=== PATIENT | female | born 1945 | race Caucasian/White ===

== ENCOUNTER 2021-07-14 05:05 | Emergency (ER) | payer MEDICARE, OTHER ==
[2021-07-14] MEDS ORDERED: SODIUM CHLORIDE 0.9% 1,000 ML IV STA (05:09)
[2021-07-14] MEDS ORDERED: HYDROmorphone 1 MG/ML 1 ML SYRINGE IVP STA (05:10)
[2021-07-14] MEDS ORDERED: LORazepam 2 MG/ML INJ IV STA (05:10)
--- NOTE | 2021-07-14 05:11 | ED ---
Fall HPI - General Stated Complaint: Fall Time Seen by Provider: 07/14/21 05:09 Source: EMS, RN notes reviewed, old records reviewed Mode of arrival: EMS Limitations: no limitations - History of Present Illness Initial Comments: This is a 76-year-old female to the emergency department today for status post fall. Patient was being transported transfer bed at [facility] facility was dropped on the ground. She has bruising of both legs pain of both hips inability to move both legs. MD Complaint: fall -: hour(s) Fall From: out of bed, from height (distance) When Fall Occurred: 1 hour [employer] Fall Witnessed: yes, by family Place Fall Occurred: home Prolonged Down Time?: no Symptoms Prior to Fall: none Location - Extremities: Left: Thigh, Right: Thigh Severity: moderate Severity scale (1-10): 4 Quality: sharp, aching Context: other (dropped) Associated Symptoms: denies - Related Data Allergies Allergy/AdvReac Type Severity Reaction Status Date / Time alfalfa Allergy Unknown Verified 07/14/21 06:14 duloxetine [From Cymbalta] Allergy Unknown Verified 07/14/21 06:14 peach Allergy Unknown Verified 07/14/21 06:14 Penicillins Allergy Unknown Verified 07/14/21 06:14 Review of Systems ROS Statement: Those systems with pertinent positive or pertinent negative responses have been documented in the HPI. ROS Other: All systems not noted in ROS Statement are negative. General Exam General appearance: alert, in no apparent distress, obese Head exam: Present: atraumatic, normocephalic, normal inspection Eye exam: Present: normal appearance, PERRL, EOMI. Absent: scleral icterus, conjunctival injection, periorbital swelling ENT exam: Present: normal exam, mucous membranes moist Neck exam: Present: normal inspection. Absent: tenderness, meningismus, lympha denopathy Respiratory exam: Present: normal lung sounds bilaterally. Absent: respiratory distress, wheezes, rales, rhonchi, stridor Cardiovascular Exam: Present: regular rate, normal rhythm, normal heart sounds. Absent: systolic murmur, diastolic murmur, rubs, gallop, clicks GI/Abdominal exam: Present: soft, normal bowel sounds. Absent: distended, tenderness, guarding, rebound, rigid Extremities exam: Present: normal inspection, full ROM, normal capillary refill. Absent: tenderness, pedal edema, joint swelling, calf tenderness Back exam: Present: normal inspection Neurological exam: Present: alert, oriented X3, CN II-XII intact Psychiatric exam: Present: normal affect, normal mood Skin exam: Present: warm, dry, intact, normal color. Absent: rash Course Vital Signs 07/14/21 07/14/21 07/14/21 05:10 06:10 07:22 Temperature 97.7 F Pulse Rate 95 120 H 111 H Respiratory 20 20 20 Rate Blood Pressure 117/88 115/89 113/89 O2 Sat by Pulse 92 L 94 L 95 Oximetry - Reevaluation(s) Reevaluation #1: 07/15/21 Medical record is reviewed Patient symptoms are improved here in the ER Patient informed results and findings, questions answered Patient is no acute distress Medical Decision Making - Medical Decision Making 76 female who is dropped her and transported extended care facility presents for evaluation. Patient has no significant new pain but imaging here is negative and patient can be discharged home - Lab Data Result diagrams: 07/14/21 05:39 07/14/21 05:39 Lab Results 07/14/21 07/14/21 07/14/21 Range/Units 05:39 05:39 05:39 WBC 8.6 (3.8-10.6) k/uL RBC 5.12 (3.80-5.40) m/uL Hgb 14.3 (11.4-16.0) gm/dL Hct 46.1 H (34.0-46.0) % MCV 90.2 D (80.0-100.0) fL MCH 28.0 (25.0-35.0) pg MCHC 31.0 (31.0-37.0) g/dL RDW 15.4 (11.5-15.5) % Plt Count 305 (150-450) k/uL MPV 6.8 Neutrophils % 81 % Lymphocytes % 12 % Monocytes % 4 % Eosinophils % 2 % Basophils % 0 % Neutrophils # 7.0 (1.3-7.7) k/uL Lymphocytes # 1.0 (1.0-4.8) k/uL Monocytes # 0.3 (0-1.0) k/uL Eosinophils # 0.2 (0-0.7) k/uL Basophils # 0.0 (0-0.2) k/uL Hypochromasia Marked PT 11.0 (9.0-12.0) sec INR 1.0 (<1.2) APTT 23.2 (22.0-30.0) sec Sodium 135 L (137-145) mmol/L Potassium 5.0 (3.5-5.1) mmol/L Chloride 97 L (98-107) mmol/L Carbon Dioxide 35 H (22-30) mmol/L Anion Gap 3 mmol/L BUN 17 (7-17) mg/dL Creatinine 0.35 L (0.52-1.04) mg/dL Est GFR (CKD-EPI)AfAm >90 (>60 ml/min/1.73 sqM) Est GFR (CKD-EPI)NonAf >90 (>60 ml/min/1.73 sqM) Glucose 119 H (74-99) mg/dL Calcium 8.6 (8.4-10.2) mg/dL Phosphorus 4.0 (2.5-4.5) mg/dL Magnesium 2.0 (1.6-2.3) mg/dL Total Bilirubin 0.4 (0.2-1.3) mg/dL AST 29 (14-36) U/L ALT 11 (4-34) U/L Alkaline Phosphatase 71 (38-126) U/L Creatine Kinase 34 (30-135) U/L Troponin I (0.000-0.034) ng/mL NT-Pro-B Natriuret Pep pg/mL Total Protein 6.5 (6.3-8.2) g/dL Albumin 3.1 L (3.5-5.0) g/dL 07/14/21 07/14/21 Range/Units 05:39 06:40 WBC (3.8-10.6) k/uL RBC (3.80-5.40) m/uL Hgb (11.4-16.0) gm/dL Hct (34.0-46.0) % MCV (80.0-100.0) fL MCH (25.0-35.0) pg MCHC (31.0-37.0) g/dL RDW (11.5-15.5) % Plt Count (150-450) k/uL MPV Neutrophils % % Lymphocytes % % Monocytes % % Eosinophils % % Basophils % % Neutrophils # (1.3-7.7) k/uL Lymphocytes # (1.0-4.8) k/uL Monocytes # (0-1.0) k/uL Eosinophils # (0-0.7) k/uL Basophils # (0-0.2) k/uL Hypochromasia PT (9.0-12.0) sec INR (<1.2) APTT (22.0-30.0) sec Sodium (137-145) mmol/L Potassium (3.5-5.1) mmol/L Chloride (98-107) mmol/L Carbon Dioxide (22-30) mmol/L Anion Gap mmol/L BUN (7-17) mg/dL Creatinine (0.52-1.04) mg/dL Est GFR (CKD-EPI)AfAm (>60 ml/min/1.73 sqM) Est GFR (CKD-EPI)NonAf (>60 ml/min/1.73 sqM) Glucose (74-99) mg/dL Calcium (8.4-10.2) mg/dL Phosphorus (2.5-4.5) mg/dL Magnesium (1.6-2.3) mg/dL Total Bilirubin (0.2-1.3) mg/dL AST (14-36) U/L ALT (4-34) U/L Alkaline Phosphatase (38-126) U/L Creatine Kinase (30-135) U/L Troponin I <0.012 (0.000-0.034) ng/mL NT-Pro-B Natriuret Pep 598 pg/mL Total Protein (6.3-8.2) g/dL Albumin (3.5-5.0) g/dL - EKG Data -: EKG Interpreted by Me (EKG shows sinus tachycardia PVCs rate of 126 WV 128 QRS 66 and QTC of 469) - Radiology Data Radiology results: report reviewed (Chest hip And pelvis x-ray is negative for traumatic injury), image reviewed Disposition Clinical Impression: Fall Disposition: HOME SELF-CARE Condition: Fair Instructions (If sedation given, give patient instructions): Fall Prevention for Older Adults (ED) Is patient prescribed a controlled substance at d/c from ED?: No Referrals: Benitez Garcia DO [Primary Care Provider] - 1-2 days
[2021-07-14 05:17] VITALS: RESP 20; TEMP 97.7
[2021-07-14 06:08] LABS: ALT 11 U/L (4-34); AST 29 U/L (14-36); African American GFR (CKD) >90 (>60 ml/min/1.73 sqM); Albumin 3.1 g/dL (3.5-5.0); Alkaline Phosphatase 71 U/L (38-126); Anion Gap 3 mmol/L; Blood Urea Nitrogen 17 mg/dL (7-17); Calcium 8.6 mg/dL (8.4-10.2); Carbon Dioxide 35 mmol/L (22-30); Chloride 97 mmol/L (98-107); Creatine Kinase 34 U/L (30-135); Glucose 119 mg/dL (74-99); Non-African American GFR(CKD) >90 (>60 ml/min/1.73 sqM); Sodium 135 mmol/L (137-145); Total Bilirubin 0.4 mg/dL (0.2-1.3); Total Protein 6.5 g/dL (6.3-8.2)
--- NOTE | 2021-07-14 06:10 | XR ---
EXAMINATION TYPE: XR chest 1V DATE OF EXAM: 07/14/2021 COMPARISON: NONE HISTORY: Fall. Pain. TECHNIQUE: Single view FINDINGS: There is no heart failure nor confluent pneumonic infiltrate. Costophrenic angles are clear . Bony thorax is intact. Heart is probably enlarged. IMPRESSION: No active cardiopulmonary disease.
--- NOTE | 2021-07-14 06:12 | XR ---
EXAMINATION TYPE: XR Hip Bilateral and AP pelvis DATE OF EXAM: 07/14/2021 COMPARISON: NONE HISTORY: Fall. Pain. TECHNIQUE: 6 views FINDINGS: Pelvic ring is intact. Proximal femurs are intact. I see no evidence of a hip fracture. Sac roiliac joints are intact. There is mild hip joint space narrowing. Exam limited by patient's size. IMPRESSION: There are some osteoarthritic change in the right hip more than the left. No fracture see n.
[2021-07-14 06:15] LABS: Basophils % (A) 0 %; Eosinophils # (A) 0.2 k/uL (0-0.7); Eosinophils % (A) 2 %; HCT 46.1 % (34.0-46.0); HGB 14.3 gm/dL (11.4-16.0); Hypochromasia Marked; Lymphocytes % (A) 12 %; Mean Platelet Volume 6.8; Monocytes # (A) 0.3 k/uL (0-1.0); Monocytes % (A) 4 %; Neutrophils % (A) 81 %; Platelet Count 305 k/uL (150-450); RBC 5.12 m/uL (3.80-5.40); RDW 15.4 % (11.5-15.5); WBC 8.6 k/uL (3.8-10.6)
[2021-07-14 06:21] LABS: MCV 90.2 fL (80.0-100.0)
[2021-07-14 06:29] LABS: Partial Thromboplastin Time 23.2 sec (22.0-30.0)
[2021-07-14] MEDS ORDERED: ALPRAZolam 0.25 MG TAB PO STA (07:02)
[2021-07-14 07:24] VITALS: BP 113/89; PULSE 111
== END 2021-07-14 08:30 | disposition home or self-care (01) ==
LOC: EC 05:05
DX: M79.652 Pain in left thigh (principal); M79.651 Pain in right thigh; E66.9 Obesity, unspecified; Z88.0 Allergy status to penicillin; Z88.8 Allergy status to other drugs, medicaments and biological substances; Z68.44 Body mass index [BMI] 60.0-69.9, adult; W06.XXXA Fall from bed, initial encounter
CPT/HCPCS: 71045; 73521; 80053; 82550; 83735; 83880; 84100; 84484; 85025; 85610; 85730; 93005; 96360; 96361; 99284

== ENCOUNTER → 2022-11-07 | Outpatient (CLI) | payer OTHER ==
[2022-11-07 15:28] LABS: African American GFR (CKD) >90 (>60 ml/min/1.73 sqM); Blood Urea Nitrogen 29 mg/dL (7-17); Non-African American GFR(CKD) >90 (>60 ml/min/1.73 sqM)
--- NOTE | 2022-11-07 22:13 | CT ---
EXAMINATION TYPE: CT abdomen pelvis w con CT DLP: 3033.6 mGycm, Automated exposure control for dose reduction was used. DATE OF EXAM: 11/07/2022 5:33 PM COMPARISON: None CLINICAL INDICATION:Female, 77 years old with history of R19.00 INTRA-ABD AND PELVIC SWELLING, MASS A ND LUM; Intra-abdominal swelling/mass TECHNIQUE: Axial CT of the abdomen and pelvis. Sagittal and coronal reformats were created on a [employer] workstation. Contrast used:100cc mL of Isovue 300 with IV Contrast, Oral contrast used: with Oral Contrast FINDINGS: Exam limited by photon starvation from patient's body habitus. LOWER CHEST: Heart is enlarged for size. Pelvic shunt measures up to 4.1 cm. Scattered groundglass op acities are seen throughout the lungs. ABDOMEN LIVER: Diffusely hypoattenuating parenchyma. GALLBLADDER AND BILE DUCTS: Unremarkable. PANCREAS: Unremarkable. SPLEEN: Unremarkable. ADRENAL GLANDS: Unremarkable. KIDNEYS AND URETERS: No evidence of hydronephrosis or renal calculus. The ureters are unremarkable. PELVIS BLADDER: Unremarkable REPRODUCTIVE: Unremarkable. ABDOMEN & PELVIS STOMACH AND BOWEL: No evidence of bowel obstruction. There is a moderate hiatal hernia. PERITONEUM: No evidence of pneumoperitoneum or free fluid. VASCULATURE: No evidence of aortic aneurysm. MUSCULOSKELETAL: No acute osseous abnormalities LYMPH NODES: No gross evidence for lymphadenopathy. SOFT TISSUE/ABDOMINAL WALL: Unremarkable IMPRESSION: 1. Limited exam without evidence for mass or lump. 2. Moderate hiatal hernia. 3. Cardiomegaly with suggestion of pulmonary vascular congestion.
== END | disposition home or self-care (01) ==
LOC: RADCTMAIN 14:12
PROVIDERS: ATTEND Family Medicine
DX: K44.9 Diaphragmatic hernia without obstruction or gangrene (principal); I51.7 Cardiomegaly; R19.09 Other intra-abdominal and pelvic swelling, mass and lump
CPT/HCPCS: 82565; 84520; 74177; 36415; Q9967 ×2

== ENCOUNTER 2023-01-24 10:06 | Inpatient (IN) | payer MEDICARE, OTHER ==
[2023-01-24] MEDS ORDERED: IPRATROPIUM-ALBUTEROL 3 ML NEB INHALATION STA (10:11)
--- NOTE | 2023-01-24 10:17 | ED ---
General Adult HPI - General Stated complaint: MAXIMINO Time Seen by Provider: 01/24/23 10:06 Source: patient, RN notes reviewed, old records reviewed - History of Present Illness Initial comments: This is a 77-year-old female who comes from [facility] for difficulty breathing. According to EMS everybody on that unit and having an upper respiratory issue at this time. Patient has been having difficulty with last ate yesterday she was started on antibiotic and steroid. Patient got worse and they brought her in the ambulance. Patient was oxygenating initially in the 80s and he was she was given a treatment on some oxygen and she was then oxygenating in the mid 90s. Patient denies any pain patient denies chest pain. Patient denies any headache patient denies lightheadedness or dizziness. Patient denies any palpitations per patient denies abdominal pain patient vomiting. Patient has a history of congestive heart failure and hypoventilation secondary to morbid obesity. Patient denies any recent fevers or chills and there is been no report of any significant coughing - Related Data Home Medications Medication Instructions Recorded Confirmed ALPRAZolam [Xanax] 0.25 mg PO DAILY PRN 01/24/23 01/24/23 ALPRAZolam [Xanax] 0.25 mg PO HS@209901/24/23 01/24/23 Acetaminophen [Acetaminophen 8 hr] 650 mg PO Q4H PRN 01/24/23 01/24/23 Albuterol Nebulized [Ventolin 2.5 mg INHALATION RT-Q4H PRN 01/24/23 01/24/23 Nebulized] Albuterol Nebulized [Ventolin 2.5 mg INHALATION RT-QID 01/24/23 01/24/23 Nebulized] Apixaban [Eliquis] 5 mg PO BID@0800,1700 01/24/23 01/24/23 Azithromycin [Zithromax] 500 mg PO DAILY 01/24/23 01/24/23 Benzonatate [Tessalon Perle] 200 mg PO TID@0800,1200,1700 01/24/23 01/24/23 Cholecalciferol [Vitamin D3 (25 100 mcg PO DAILY@1700 01/24/23 01/24/23 Mcg = 1000 Iu)] Docusate [Colace] 100 mg PO BID@0800,2100 01/24/23 01/24/23 Fluticasone Nasal Bowie [Flonase 1 spray EA NOSTRIL DAILY 01/24/23 01/24/23 Nasal Bowie] Furosemide [Lasix] 40 mg PO DAILY@0800 01/24/23 01/24/23 L.acidoph,Paracasei, B.lactis 1 cap PO DAILY@0800 01/24/23 01/24/23 [Probiotic] Magnesium Hydroxide [Milk of 7,200 mg PO DAILY PRN 01/24/23 01/24/23 Magnesia Concentrate] Multivitamins, Thera [Multivitamin 1 tab PO DAILY@1700 01/24/23 01/24/23 (formulary)] Na Phos,M-B/Na Phos,Di-Ba [Fleet 133 ml RECTAL DAILY PRN 01/24/23 01/24/23 Adult] Potassium Chloride ER [K-Dur 10] 10 meq PO BID@0800,1700 01/24/23 01/24/23 Sodium Chloride [Saline Mist] 1 spray EA NOSTRIL BID PRN 01/24/23 01/24/23 Spironolactone [Aldactone] 25 mg PO BID@0800,1700 01/24/23 01/24/23 bisacodyL [Dulcolax] 10 mg RECTAL DAILY PRN 01/24/23 01/24/23 dilTIAZem HCL 30 mg PO TID@0800,1400,2200 01/24/23 01/24/23 methylPREDNISolone [Medrol Dose See Taper PO DIRECTED 01/24/23 01/24/23 Pack] polyethylene glycoL 3350 [Miralax] 17 gm PO DAILY@0800 01/24/23 01/24/23 traMADol HCl [Ultram] 50 mg PO HS PRN 01/24/23 01/24/23 Allergies Allergy/AdvReac Type Severity Reaction Status Date / Time alfalfa Allergy Unknown Verified 07/14/21 06:14 duloxetine [From Cymbalta] Allergy Unknown Verified 07/14/21 06:14 peach Allergy Unknown Verified 07/14/21 06:14 Penicillins Allergy Unknown Verified 07/14/21 06:14 Review of Systems ROS Statement: Those systems with pertinent positive or pertinent negative responses have been documented in the HPI. ROS Other: All systems not noted in ROS Statement are negative. Past Medical History Past Medical History: Atrial Fibrillation, Asthma, Heart Failure, Hypertension, Osteoarthritis (OA), Sleep Apnea/CPAP/BIPAP, Vascular Disorder History of Any Multi-Drug Resistant Organisms: None Reported Past Surgical History: No Surgical Hx Reported Smoking Status: Never smoker Past Alcohol Use History: None Reported Past Drug Use History: None Reported General Exam - General Exam Comments Initial Comments: GENERAL: Patient is well-developed and well-nourished. Patient is nontoxic and well- hydrated and is in mild distress. ENT: Neck is soft and supple. No significant lymphadenopathy is noted. Oropharynx is clear. Moist mucous membranes. Neck has full range of motion without eliciting any pain. EYES: The sclera were anicteric and conjunctiva were pink and moist. Extraocular movements were intact and pupils were equal round and reactive to light. Eyelids were unremarkable. PULMONARY: Diminished breath sounds. CARDIOVASCULAR: Patient is tachycardic at 115 beats a minute ABDOMEN: Soft and nontender with normal bowel sounds. SKIN: Skin is clear with no lesions or rashes and otherwise unremarkable. NEUROLOGIC: Patient is alert and oriented x3. Cranial nerves II through XII are grossly intact. Motor and sensory are also intact. Normal speech, volume and content. Symmetrical smile. MUSCULOSKELETAL: Normal extremities with adequate strength and full range of motion. No lower extremity swelling or edema. No calf tenderness. LYMPHATICS: No significant lymphadenopathy is noted PSYCHIATRIC: Normal psychiatric evaluation. Course Vital Signs 01/24/23 01/24/23 01/24/23 10:07 10:14 10:23 Temperature 98.2 F Pulse Rate 136 H 120 H 128 H Respiratory 18 Rate Blood Pressure 118/98 O2 Sat by Pulse 92 L Oximetry Fraction of Inspired Oxygen (FIO2) 01/24/23 01/24/23 01/24/23 11:00 11:15 11:56 Temperature Pulse Rate 174 H 142 H Respiratory 33 H 30 H Rate Blood Pressure 122/75 113/58 O2 Sat by Pulse 94 L 94 L Oximetry Fraction of 80 Inspired Oxygen (FIO2) 01/24/23 01/24/23 01/24/23 12:10 12:15 12:30 Temperature Pulse Rate 134 H 134 H Respiratory 18 Rate Blood Pressure 83/57 96/62 O2 Sat by Pulse 95 96 Oximetry Fraction of 80 Inspired Oxygen (FIO2) 01/24/23 01/24/23 01/24/23 12:40 12:48 12:50 Temperature Pulse Rate 146 H 154 H Respiratory 36 H 20 Rate Blood Pressure 92/29 88/58 O2 Sat by Pulse 93 L 97 Oximetry Fraction of 80 Inspired Oxygen (FIO2) 01/24/23 01/24/23 13:00 13:10 Temperature Pulse Rate 161 H 152 H Respiratory 20 22 Rate Blood Pressure 63/38 112/78 O2 Sat by Pulse 93 L 96 Oximetry Fraction of Inspired Oxygen (FIO2) Procedures - Intubation Sedative: Versed Paralytic: Succinylcholine Laryngoscope: Toribio Size: 4 ET Tube Size: 7.5 ET Tube Uncuffed: No Tube Secured Location: teeth Tube Placement Confirmation: visualized tube passing through cords, equal breath sounds bilaterally, no breath sounds over epigastrium, confirmation by capnometry Patient Tolerated Procedure: well Intubation Complications: none Medical Decision Making - Medical Decision Making EKG was interpreted by myself shows fibrillation with rapid ventricular response at 127 bpm QRS is 91 QT interval 352 QTC is 380. EKG shows no ST segment elevation. Was pt. sent in by a medical professional or institution (Dr. PA, TOBACCO CURER, urgent care, hospital, or residential...) When possible be specific @ -Patient was sent in from the residential Did you speak to anyone other than the patient for history (EMS, parent, family, police, friend...)? What history was obtained from this source @ -EMS gave us most of the history because the patient was so short of breath she was unable Did you review nursing and triage notes (agree or disagree)? Why? @ -I reviewed and agree with nursing and triage notes Were old charts reviewed (outside hosp., previous admission, EMS record, old EKG, old radiological studies, urgent care reports/EKG's, residential records)? Report findings @ -To review prior lab work as well as prior radiological studies Differential Diagnosis (chest pain, altered mental status, abdominal pain women, abdominal pain men, vaginal bleeding, weakness, fever, dyspnea, syncope, headache, dizziness, GI bleed, back pain, seizure, CVA, palpatations, mental health, musculoskeletal)? @ -Differential Dyspnea: Coronary syndrome, arrhythmia, tamponade, asthma, COPD, pulmonary embolism, pneumonia, pneumothorax, pulmonary effusion, anaphylaxis, diabetic ketoacidosis, flailed chest, pulmonary contusion, diaphragmatic rupture, anemia, neuromuscular, this is not meant to be an all-inclusive list. EKG interpreted by me (3pts min.). @ -As above X-rays interpreted by me (1pt min.). @ -Chest x-ray was interpreted by myself as no acute abnormality. Chest x-ray after intubation was interpreted by myself that shows the ET tube down to close to the tenzin. CT interpreted by me (1pt min.). @ -None done U/S interpreted by me (1pt. min.). @ -None done What testing was considered but not performed or refused? (CT, X-rays, U/S, labs)? Why? @ -CT was considered but the patient was stable at this time so the patient was going to the ICU first. What meds were considered but not given or refused? Why? @ -None Did you discuss the management of the patient with other professionals (pro fessionals i.e. , PA, TOBACCO CURER, lab, RT, psych nurse, oncology social worker, oracle distribution consultant, teacher, sba business development officer, high risk case manager)? Give summary @ -I spoke with Dr. Marquez he was in agreement with treatment at this time and he will see the patient in ICU. I spoke with Dr. Mata he was in agreement with admitting the patient admitted the patient Was smoking cessation discussed for >3mins.? @ -No Was critical care preformed (if so, how long)? @ -35 minutes Were there social determinants of health that impacted care today? How? (Homelessness, low income, unemployed, alcoholism, drug addiction, tra nsportation, low edu. Level, literacy, decrease access to med. care, long-term, rehab)? @ -No Was there de-escalation of care discussed even if they declined (Discuss DNR or withdrawal of care, Hospice)? DNR status @ -No What co-morbidities impacted this encounter? (DM, HTN, Smoking, COPD, CAD, Cancer, CVA, ARF, Chemo, Hep., AIDS, mental health diagnosis, sleep apnea, morbid obesity)? @ -None Was patient admitted / discharged? Hospital course, mention meds given and route, prescriptions, significant lab abnormalities, going to OR and other pertinent info. @ -Patient was initially seen and she became more more obtunded and it was difficult to use BiPAP at this point patient's pCO2 was greater than 120 at this time so I intubated the patient. Patient was then given a liter fluid pressure was somewhat tender. Patient was initially started on Cardizem but because of low blood pressure that was stopped. Patient was started on propofol for some sedation so we get better ventilation. I spoke with Dr. Marquez and Dr. Mata and knocked with both accepted the patient Undiagnosed new problem with uncertain prognosis? @ -No Drug Therapy requiring intensive monitoring for toxicity (Heparin, Nitro, Insuli n, Cardizem)? @ -Propofol Were any procedures done? @ -No Diagnosis/symptom? @ -Respiratory failure Acute, or Chronic, or Acute on Chronic? @ -Acute Uncomplicated (without systemic symptoms) or Complicated (systemic symptoms)? @ -Complicated Side effects of treatment? @ -No Exacerbation, Progression, or Severe Exacerbation? @ -No Poses a threat to life or bodily function? How? (Chest pain, [place], CO, pneumonia, PE, COPD, DKA, ARF, appy, cholecystitis, CVA, Diverticulitis, Homicidal, Suicidal, threat to staff... and all critical care pts) @ -Yes this could lead to hypoxia and end organ dysfunction Diagnosis/symptom? @ -Hypercapnia Acute, or Chronic, or Acute on Chronic? @ -Acute Uncomplicated (without systemic symptoms) or Complicated (systemic symptoms)? @ -Complicated Side effects of treatment? @ -none Exacerbation, Progression, or Severe Exacerbation] @ -no Poses a threat to life or bodily function? @ -Yes this can lead to continue acidosis and lead to dysfunction of organs systems Diagnosis/symptom? @ -A. fib with rapid ventricular response Acute, or Chronic, or Acute on Chronic? @ -Acute on chronic Uncomplicated (without systemic symptoms) or Complicated (systemic symptoms)? @ -Complicated Side effects of treatment? @ -none Exacerbation, Progression, or Severe Exacerbation] @ -no Poses a threat to life or bodily function? @ -no Diagnosis/symptom? @ -Hyperkalemia Acute, or Chronic, or Acute on Chronic? @ -Acute Uncomplicated (without systemic symptoms) or Complicated (systemic symptoms)? @ -Complicated Side effects of treatment? @ -none Exacerbation, Progression, or Severe Exacerbation] @ -no Poses a threat to life or bodily function? @ -Yes this could lead to cardiac arrhythmias - Lab Data Result diagrams: 01/24/23 10:19 01/24/23 10:19 Lab Results 01/24/23 01/24/23 01/24/23 Range/Units 10:19 10:19 10:19 WBC 6.9 (3.8-10.6) k/uL RBC 5.91 H (3.80-5.40) m/uL Hgb 17.5 H (11.4-16.0) gm/dL Hct 54.2 H (34.0-46.0) % MCV 91.7 (80.0-100.0) fL MCH 29.7 (25.0-35.0) pg MCHC 32.3 (31.0-37.0) g/dL RDW 16.2 H (11.5-15.5) % Plt Count 203 (150-450) k/uL MPV 7.5 Neutrophils % 86 % Lymphocytes % 5 % Monocytes % 7 % Eosinophils % 0 % Basophils % 0 % Neutrophils # 6.0 (1.3-7.7) k/uL Lymphocytes # 0.3 L (1.0-4.8) k/uL Monocytes # 0.5 (0-1.0) k/uL Eosinophils # 0.0 (0-0.7) k/uL Basophils # 0.0 (0-0.2) k/uL Anisocytosis Slight PT 13.0 H (9.0-12.0) sec INR 1.3 H (<1.2) APTT 32.7 H (22.0-30.0) sec Sample Site ABG pH (7.35-7.45) ABG pCO2 (35-45) mmHg ABG pO2 (83-108) mmHg ABG O2 Saturation (94-97) % Luca Test FiO2 % Sodium 130 L (137-145) mmol/L Potassium 6.0 H (3.5-5.1) mmol/L Chloride 87 L (98-107) mmol/L Carbon Dioxide 38 H (22-30) mmol/L Anion Gap 5 mmol/L BUN 35 H (7-17) mg/dL Creatinine 0.51 L (0.52-1.04) mg/dL Est GFR (CKD-EPI)AfAm >90 (>60 ml/min/1.73 sqM) Est GFR (CKD-EPI)NonAf >90 (>60 ml/min/1.73 sqM) Glucose 125 H (74-99) mg/dL Plasma Lactic Acid Dev (0.7-2.0) mmol/L Calcium 8.9 (8.4-10.2) mg/dL Magnesium 1.9 (1.6-2.3) mg/dL Total Bilirubin 0.8 (0.2-1.3) mg/dL AST 36 (14-36) U/L ALT 27 (4-34) U/L Alkaline Phosphatase 95 (38-126) U/L Troponin I (0.000-0.034) ng/mL NT-Pro-B Natriuret Pep pg/mL Total Protein 7.3 (6.3-8.2) g/dL Albumin 3.7 (3.5-5.0) g/dL Influenza Type A (PCR) (Not Detectd) Influenza Type B (PCR) (Not Detectd) RSV (PCR) (Not Detectd) SARS-CoV-2 (PCR) (Not Detectd) 01/24/23 01/24/23 01/24/23 Range/Units 10:19 10:19 10:19 WBC (3.8-10.6) k/uL RBC (3.80-5.40) m/uL Hgb (11.4-16.0) gm/dL Hct (34.0-46.0) % MCV (80.0-100.0) fL MCH (25.0-35.0) pg MCHC (31.0-37.0) g/dL RDW (11.5-15.5) % Plt Count (150-450) k/uL MPV Neutrophils % % Lymphocytes % % Monocytes % % Eosinophils % % Basophils % % Neutrophils # (1.3-7.7) k/uL Lymphocytes # (1.0-4.8) k/uL Monocytes # (0-1.0) k/uL Eosinophils # (0-0.7) k/uL Basophils # (0-0.2) k/uL Anisocytosis PT (9.0-12.0) sec INR (<1.2) APTT (22.0-30.0) sec Sample Site ABG pH (7.35-7.45) ABG pCO2 (35-45) mmHg ABG pO2 (83-108) mmHg ABG O2 Saturation (94-97) % Luca Test FiO2 % Sodium (137-145) mmol/L Potassium (3.5-5.1) mmol/L Chloride (98-107) mmol/L Carbon Dioxide (22-30) mmol/L Anion Gap mmol/L BUN (7-17) mg/dL Creatinine (0.52-1.04) mg/dL Est GFR (CKD-EPI)AfAm (>60 ml/min/1.73 sqM) Est GFR (CKD-EPI)NonAf (>60 ml/min/1.73 sqM) Glucose (74-99) mg/dL Plasma Lactic Acid Dev 1.3 (0.7-2.0) mmol/L Calcium (8.4-10.2) mg/dL Magnesium (1.6-2.3) mg/dL Total Bilirubin (0.2-1.3) mg/dL AST (14-36) U/L ALT (4-34) U/L Alkaline Phosphatase (38-126) U/L Troponin I 0.048 H* (0.000-0.034) ng/mL NT-Pro-B Natriuret Pep 3320 pg/mL Total Protein (6.3-8.2) g/dL Albumin (3.5-5.0) g/dL Influenza Type A (PCR) (Not Detectd) Influenza Type B (PCR) (Not Detectd) RSV (PCR) (Not Detectd) SARS-CoV-2 (PCR) (Not Detectd) 01/24/23 01/24/23 Range/Units 10:19 11:35 WBC (3.8-10.6) k/uL RBC (3.80-5.40) m/uL Hgb (11.4-16.0) gm/dL Hct (34.0-46.0) % MCV (80.0-100.0) fL MCH (25.0-35.0) pg MCHC (31.0-37.0) g/dL RDW (11.5-15.5) % Plt Count (150-450) k/uL MPV Neutrophils % % Lymphocytes % % Monocytes % % Eosinophils % % Basophils % % Neutrophils # (1.3-7.7) k/uL Lymphocytes # (1.0-4.8) k/uL Monocytes # (0-1.0) k/uL Eosinophils # (0-0.7) k/uL Basophils # (0-0.2) k/uL Anisocytosis PT (9.0-12.0) sec INR (<1.2) APTT (22.0-30.0) sec Sample Site rrad ABG pH 7.06 L* (7.35-7.45) ABG pCO2 >120 H* (35-45) mmHg ABG pO2 172 H (83-108) mmHg ABG O2 Saturation 98.6 H (94-97) % Luca Test Yes FiO2 100 % Sodium (137-145) mmol/L Potassium (3.5-5.1) mmol/L Chloride (98-107) mmol/L Carbon Dioxide (22-30) mmol/L Anion Gap mmol/L BUN (7-17) mg/dL Creatinine (0.52-1.04) mg/dL Est GFR (CKD-EPI)AfAm (>60 ml/min/1.73 sqM) Est GFR (CKD-EPI)NonAf (>60 ml/min/1.73 sqM) Glucose (74-99) mg/dL Plasma Lactic Acid Dev (0.7-2.0) mmol/L Calcium (8.4-10.2) mg/dL Magnesium (1.6-2.3) mg/dL Total Bilirubin (0.2-1.3) mg/dL AST (14-36) U/L ALT (4-34) U/L Alkaline Phosphatase (38-126) U/L Troponin I (0.000-0.034) ng/mL NT-Pro-B Natriuret Pep pg/mL Total Protein (6.3-8.2) g/dL Albumin (3.5-5.0) g/dL Influenza Type A (PCR) Not Detected (Not Detectd) Influenza Type B (PCR) Not Detected (Not Detectd) RSV (PCR) Not Detected (Not Detectd) SARS-CoV-2 (PCR) Not Detected (Not Detectd) Critical Care Time Critical Care Time: Yes Total Critical Care Time: 35 Disposition Clinical Impression: Hypercarbia, Respiratory failure, Hyperkalemia, Atrial fibrillation with rapid ventricular response, Hyponatremia Disposition: ADMITTED IP TO THIS HOSP Referrals: Benitez Garcia DO [Primary Care Provider] - 1-2 days Time of Disposition: 13:31
[2023-01-24] MEDS ORDERED: DILTIAZEM DRIP BOLUS FROM BAG 1 MG SOLN IV ONE ×2 (10:41→17:03)
[2023-01-24 10:57] LABS: Anisocytosis Slight; Basophils % (A) 0 %; Eosinophils % (A) 0 %; HCT 54.2 % (34.0-46.0); HGB 17.5 gm/dL (11.4-16.0); Lymphocytes # (A) 0.3 k/uL (1.0-4.8); Lymphocytes % (A) 5 %; MCH 29.7 pg (25.0-35.0); MCHC 32.3 g/dL (31.0-37.0); MCV 91.7 fL (80.0-100.0); Mean Platelet Volume 7.5; Monocytes # (A) 0.5 k/uL (0-1.0); Monocytes % (A) 7 %; Neutrophils % (A) 86 %; Platelet Count 203 k/uL (150-450); RBC 5.91 m/uL (3.80-5.40); RDW 16.2 % (11.5-15.5); WBC 6.9 k/uL (3.8-10.6)
[2023-01-24] MEDS: CEFEPIME 2 GM in SODIUM CHLORIDE 0.9% 100 ML IVPB SCH (11:00)
--- NOTE | 2023-01-24 11:01 | XR ---
EXAMINATION TYPE: XR chest 2V DATE OF EXAM: 01/24/2023 COMPARISON: 07/14/2021 HISTORY: 77-year-old female shortness of breath, difficulty breathing TECHNIQUE: AP and lateral views FINDINGS: Heart mild to moderately enlarged. Large appearance to the central main pulmonary arteries. Interstit ial prominence. No rosa consolidation or pleural effusion. IMPRESSION: Cardiomegaly and pulmonary arterial hypertension. Correlate to exclude mild pulmonary vascular conges tion.
[2023-01-24] MEDS: DILTIAZEM 125 MG in SODIUM CHLORIDE 0.9% 100 ML IV SCH ×2 (11:09→18:59)
[2023-01-24 11:12] LABS: ALT 27 U/L (4-34); AST 36 U/L (14-36); African American GFR (CKD) >90 (>60 ml/min/1.73 sqM); Albumin 3.7 g/dL (3.5-5.0); Alkaline Phosphatase 95 U/L (38-126); Anion Gap 5 mmol/L; Blood Urea Nitrogen 35 mg/dL (7-17); Calcium 8.9 mg/dL (8.4-10.2); Carbon Dioxide 38 mmol/L (22-30); Chloride 87 mmol/L (98-107); Glucose 125 mg/dL (74-99); Magnesium 1.9 mg/dL (1.6-2.3); Non-African American GFR(CKD) >90 (>60 ml/min/1.73 sqM); Sodium 130 mmol/L (137-145); Total Bilirubin 0.8 mg/dL (0.2-1.3); Total Protein 7.3 g/dL (6.3-8.2)
[2023-01-24 11:23] LABS: INR 1.3 (<1.2); Partial Thromboplastin Time 32.7 sec (22.0-30.0)
[2023-01-24] MEDS ORDERED: FUROSEMIDE 10 MG/ML 4 ML VIAL IV STA ×2 (11:39→15:57)
[2023-01-24] MEDS ORDERED: CALCIUM CHLORIDE 100 MG/ML 10 ML SYRINGE IVP STA (11:41)
[2023-01-24] MEDS ORDERED: INSULIN REGULAR 100 UNIT/ML VIAL (IV) IV ONE (11:41)
[2023-01-24] MEDS ORDERED: SODIUM BICARB 8.4% 50 ML SYR (1 MEQ/ML) IV STA (11:41)
[2023-01-24] MEDS ORDERED: DEXTROSE 50% SYRINGE 50 ML IVP STA (11:41)
[2023-01-24 11:42] LABS: ABG Oxygen Saturation 98.6 % (94-97); ABG PO2 172 mmHg (83-108); Allen Test Performed? Yes
[2023-01-24] MEDS ORDERED: SUCCINYLCHOLINE CHLORIDE 200 MG/10 ML VIAL IV STA (11:48)
[2023-01-24] MEDS ORDERED: MIDAZOLAM 1 MG/ML 5 ML VIAL IV STA (11:50)
[2023-01-24 12:12] LABS: ABG PCO2 >120 mmHg (35-45); ABG PH 7.06 (7.35-7.45)
--- NOTE | 2023-01-24 12:15 | XR ---
EXAMINATION TYPE: XR chest 1V portable DATE OF EXAM: 01/24/2023 Comparison: Earlier today Clinical History: 77-year-old female Short of breath Findings: ET tube tip 2.1 cm from the tenzin. Consider pulling back 1.5 cm across. Measure. Heart remains moderately enlarged. Again, suspected underlying pulmonary hypertension. Interstitial p rominence is unchanged. No consolidation or pleural effusion. Impression: 1. ET tube tip 2.1 cm from the tenzin. Consider pulling back 1.5 cm as a precautionary measure. 2. Ongoing moderate cardiomegaly and suspected pulmonary arterial hypertension.
[2023-01-24] MEDS ORDERED: SODIUM CHLORIDE 0.9% 1,000 ML IV ONE ×3 (12:27→22:38)
[2023-01-24] MEDS ORDERED: DILTIAZEM 5 MG/ML 5 ML VIAL IVP STA ×2 (12:30→16:30)
[2023-01-24 13:29] LABS: ABG Base Excess 2.9 mmol/L; ABG HCO3 31 mmol/L (21-25); ABG Oxygen Saturation 99.6 % (94-97); ABG PO2 170 mmHg (83-108); ABG TCO2 33 mmol/L (19-24); Allen Test Performed? Yes
[2023-01-24 13:31] LABS: ABG PCO2 80 mmHg (35-45)
[2023-01-24] MEDS ORDERED: NALOXONE 0.4 MG/ML 1 ML VIAL IV PRN (13:39)
--- NOTE | 2023-01-24 14:08 | P.CNPUL ---
History of Present Illness Consult date: 01/24/23 Requesting physician: Bud Chin Reason for consult: COPD, other (ICU management) Chief complaint: Shortness of breath and cough History of present illness: This is a 77-year-old female with history of morbid obesity, obesity hypoventilation syndrome, chronic atrial fibrillation, no previous smoking history, nonetheless the patient is normally maintained on albuterol, suspect underlying bronchial asthma. Patient is also on BiPAP for obstructive sleep apnea syndrome and obesity hypoventilation syndrome. Has been compliant with the machine for the last few months. Patient was brought in by EMS this morning complaining of increased shortness of breath and cough, intermittent wheezing, patient was recently started on antibiotics and steroids by her primary care physician but apparently did not improve her much. Upon arrival to the ER, her O2 saturation was in the 80s patient was placed on a nonrebreather mask, her oxygenation improved, however the patient became obtunded and developed acute on chronic hypercapnic respiratory failure. Patient was intubated by the ER physician and I was asked to see her on consultation. I saw the patient down in the ER, she is intubated, sedated, on mechanical ventilation, she is on assist control rate of 20, tidal volume 400, FiO2 was on 60% and I cut it down to 35%, and PEEP was increased from 5-8. ABG which was done on 80% showed a pCO2 of 80 be O2 of 170 pH of 7.20 prior ABG showed a pO2 of 172 pCO2 above 120 pH of 7.06. Looking at her electrolytes, patient had elevated potassium of 6.0 at a baseline bicarb is 38, she has normal renal status. Based on the fact that the patient has elevated bicarb of 38, that means the patient has chronic hypercapnia with metabolic compensation for her chronic respiratory acidosis at any rate patient is now on mechanical ventilation, and the plan is to transfer the patient to the ICU shortly once a bed becomes available. Chest x-ray showed moderate cardiomegaly, prominence of the pulmonary vasculature, and possibly some component of interstitial edema. EKG showed atrial fibrillation with RVR, otherwise no acute ischemic changes BNP level is elevated at 3320 and a troponin is 0.048. Final screening including screening for COVID-19 infection is negative. Review of Systems ROS unobtainable: due to endotracheal tube Past Medical History Past Medical History: Atrial Fibrillation, Asthma, Heart Failure, Hypertension, Osteoarthritis (OA), Sleep Apnea/CPAP/BIPAP, Vascular Disorder History of Any Multi-Drug Resistant Organisms: None Reported Past Surgical History: No Surgical Hx Reported Smoking Status: Never smoker Past Alcohol Use History: None Reported Past Drug Use History: None Reported Medications and Allergies Home Medications Medication Instructions Recorded Confirmed Type ALPRAZolam [Xanax] 0.25 mg PO DAILY PRN 01/24/23 01/24/23 History ALPRAZolam [Xanax] 0.25 mg PO HS@2100 01/24/23 01/24/23 History Acetaminophen [Acetaminophen 8 hr] 650 mg PO Q4H PRN 01/24/23 01/24/23 History Albuterol Nebulized [Ventolin 2.5 mg INHALATION RT-Q4H PRN 01/24/23 01/24/23 History Nebulized] Albuterol Nebulized [Ventolin 2.5 mg INHALATION RT-QID 01/24/23 01/24/23 History Nebulized] Apixaban [Eliquis] 5 mg PO BID@0800,1700 01/24/23 01/24/23 History Azithromycin [Zithromax] 500 mg PO DAILY 01/24/23 01/24/23 History Benzonatate [Tessalon Perle] 200 mg PO TID@0800,1200,1700 01/24/23 01/24/23 History Cholecalciferol [Vitamin D3 (25 100 mcg PO DAILY@1700 01/24/23 01/24/23 History Mcg = 1000 Iu)] Docusate [Colace] 100 mg PO BID@0800,2100 01/24/23 01/24/23 History Fluticasone Nasal [place] [Flonase 1 spray EA NOSTRIL DAILY 01/24/23 01/24/23 History Nasal [place]] Furosemide [Lasix] 40 mg PO DAILY@0800 01/24/23 01/24/23 History L.acidoph,Paracasei, B.lactis 1 cap PO DAILY@0800 01/24/23 01/24/23 History [Probiotic] Magnesium Hydroxide [Milk of 7,200 mg PO DAILY PRN 01/24/23 01/24/23 History Magnesia Concentrate] Multivitamins, Thera [Multivitamin 1 tab PO DAILY@1700 01/24/23 01/24/23 History (formulary)] Na Phos,M-B/Na Phos,Di-Ba [Fleet 133 ml RECTAL DAILY PRN 01/24/23 01/24/23 History Adult] Potassium Chloride ER [K-Dur 10] 10 meq PO BID@0800,1700 01/24/23 01/24/23 History Sodium Chloride [Saline Mist] 1 spray EA NOSTRIL BID PRN 01/24/23 01/24/23 History Spironolactone [Aldactone] 25 mg PO BID@0800,1700 01/24/23 01/24/23 History bisacodyL [Dulcolax] 10 mg RECTAL DAILY PRN 01/24/23 01/24/23 History dilTIAZem HCL 30 mg PO TID@0800,1400,2200 01/24/23 01/24/23 History methylPREDNISolone [Medrol Dose See Taper PO DIRECTED 01/24/23 01/24/23 History Pack] polyethylene glycoL 3350 [Miralax] 17 gm PO DAILY@0800 01/24/23 01/24/23 History traMADol HCl [Ultram] 50 mg PO HS PRN 01/24/23 01/24/23 History Allergies Allergy/AdvReac Type Severity Reaction Status Date / Time alfalfa Allergy Unknown Verified 07/14/21 06:14 duloxetine [From Cymbalta] Allergy Unknown Verified 07/14/21 06:14 peach Allergy Unknown Verified 07/14/21 06:14 Penicillins Allergy Unknown Verified 07/14/21 06:14 Physical Exam Vitals: Vital Signs Temp Pulse Resp BP Pulse Ox FiO2 01/24/23 13:49 40 01/24/23 13:36 60 01/24/23 13:10 152 H 22 112/78 96 01/24/23 13:00 161 H 20 63/38 93 L 01/24/23 12:50 154 H 20 88/58 97 01/24/23 12:48 80 01/24/23 12:40 146 H 36 H 92/29 93 L 01/24/23 12:30 134 H 18 96/62 96 01/24/23 12:15 134 H 83/57 95 01/24/23 12:10 80 01/24/23 11:56 80 01/24/23 11:15 142 H 30 H 113/58 94 L 01/24/23 11:00 174 H 33 H 122/75 94 L 01/24/23 10:23 128 H 01/24/23 10:14 120 H 01/24/23 10:07 98.2 F 136 H 18 118/98 92 L Intake and Output 01/23/23 01/24/23 01/24/23 22:59 06:59 14:59 Intake Total 16.387 Balance 16.387 Intake: Intake, IV Titration 16.387 Amount Diltiazem 125 mg In 5.833 Sodium Chloride 0.9% 100 ml @ 5 MG/HR 5 mls/hr IV .Q24H [facility] Rx#:[id number] propofoL 1,000 mg In 10.554 Empty Bag 1 bag @ 15 MCG/ KG/MIN 13.472 mls/hr IV . Q7H26M [facility] Rx#:[id number] Other: Weight 149.685 kg Physical Exam: Revealed 77-year-old female, obese, intubated mechanically ventilated sedated on propofol. Head: Atraumatic, normocephalic, endotracheal tube is intact. HEENT: PERRLA, EOMI, anicteric, dry mucous membranes. Cardiac: Irregular irregular rhythm, no S3 gallop, no murmur. Chest: [Symmetrical chest expansion, scattered rhonchi and wheezes noted bilaterally. Crackles at the bases. Abdomen: [Soft, nontender, no megaly, no rebound, no guarding, normal bowel s ounds.] Extremities: [No clubbing, no edema, no cyanosis.] Neurological Exam: [Could not assess, patient is on propofol, but seems to be arousable.. Psychiatric: Could not assess. Skin: No rashes. Results - Laboratory Findings CBC and BMP: 01/24/23 10:19 01/24/23 10:19 ABG ABG pH 7.20 (7.35-7.45) L 01/24/23 13:25 ABG pCO2 80 mmHg (35-45) H* 01/24/23 13:25 ABG pO2 170 mmHg (83-108) H 01/24/23 13:25 ABG O2 Saturation 99.6 % (94-97) H 01/24/23 13:25 PT/INR, D-dimer PT 13.0 sec (9.0-12.0) H 01/24/23 10:19 INR 1.3 (<1.2) H 01/24/23 10:19 Abnormal lab findings: Abnormal Labs 01/24/23 01/24/23 01/24/23 10:19 10:19 10:19 RBC 5.91 H Hgb 17.5 H Hct 54.2 H RDW 16.2 H Lymphocytes # 0.3 L PT 13.0 H INR 1.3 H APTT 32.7 H ABG pH ABG pCO2 ABG pO2 ABG HCO3 ABG Total CO2 ABG O2 Saturation Sodium 130 L Potassium 6.0 H Chloride 87 L Carbon Dioxide 38 H BUN 35 H Creatinine 0.51 L Glucose 125 H Troponin I 01/24/23 01/24/23 01/24/23 10:19 11:35 13:25 RBC Hgb Hct RDW Lymphocytes # PT INR APTT ABG pH 7.06 L* 7.20 L ABG pCO2 >120 H* 80 H* ABG pO2 172 H 170 H ABG HCO3 31 H ABG Total CO2 33 H ABG O2 Saturation 98.6 H 99.6 H Sodium Potassium Chloride Carbon Dioxide BUN Creatinine Glucose Troponin I 0.048 H* - Diagnostic Findings Chest x-ray: image reviewed (As noted in HPI) Assessment and Plan Assessment: Impression: Acute on chronic hypercapnic respiratory failure Acute hypoxic respiratory failure Obesity/hypoventilation syndrome Suspect underlying bronchial asthma with acute exacerbation of asthma Acute diastolic congestive heart failure Chronic atrial fibrillation with RVR Morbid obesity with obesity/hypoventilation syndrome Lifetime nonsmoker Medical debility, patient is bed ridden at [facility] Recommendation: Continue ventilatory support Continue bronchodilators Start patient on diuretics, gentle diuresis. Cardiology to address her atrial fibrillation and RVR Empiric antibiotics in the form of Rocephin and Zithromax Nutritional support/enteral feeding GI and DVT prophylaxis Continue anticoagulation, patient is on adequate Resume home meds We will address weaning trials probably in the next 24 hours. We will continue to follow Patient is critically ill. Cost her condition with and children at bedside. Time with Patient: Greater than 30
[2023-01-24] MEDS ORDERED: ENOXAPARIN 40 MG/0.4 ML SYRINGE SQ SCH (15:15)
[2023-01-24 15:27] LABS: Glucose,Whole Blood 169 mg/dL (70-110)
[2023-01-24] MEDS: AZITHROMYCIN 500 MG in SODIUM CHLORIDE 0.9% 250 ML IVPB SCH (15:37)
[2023-01-24] MEDS: PANTOPRAZOLE 40 MG/10 ML VIAL IVP SCH (15:57)
[2023-01-24] MEDS ORDERED: IPRATROPIUM-ALBUTEROL 3 ML NEB INHALATION SCH (16:00)
--- NOTE | 2023-01-24 16:18 | XR ---
EXAMINATION TYPE: XR chest 1V portable DATE OF EXAM: 01/24/2023 COMPARISON: Today HISTORY: Respiratory failure TECHNIQUE: Single view FINDINGS: Endotracheal tube is 4 cm from the tenzin. Heart is enlarged. No heart failure. There is na sogastric tube with tip at the gastric fundus. Tip is close to the gastroesophageal junction. No pleural effusion. IMPRESSION: Cardiomegaly. No heart failure.
[2023-01-24] MEDS ORDERED: ACETAMINOPHEN TAB 325 MG TAB PO PRN (16:20)
[2023-01-24] MEDS ORDERED: ALPRAZolam 0.25 MG TAB PO PRN (16:20)
--- NOTE | 2023-01-24 16:20 | P.HPIM ---
History of Present Illness H&P Date: 01/24/23 Chief Complaint: Short of breath This is a 77-year-old patient who follows with Dr. Garcia at [facility]. As per the EMS report and ER patient's entire being in the facilities had influenza like symptoms on and off for all week. Patient was noted to be having increasing shortness of breath since yesterday. Patient started antibiotics and steroids yesterday. Patient today was 88% on 2 L. And on 4 L and was 90% normally does 97-99% with 2 L. Patient is alert but in shortness of breath. Patient's oxygen did drop down to 86%. Patient also had a dry cough for 2-3 days. Was put on 6 L of oxygen. In the ER patient's started becoming more obtunded. Becoming more difficult use the BiPAP. Blood gas came back showing the pCO2 greater than 120. Patient was intubated. Also patient was in IV Cardizem drip because of controlled A. fib. Blood pressure dropped and Cardizem drip was discontinued. Patient is put on propofol. Patient's currently on FiO2 40 and a PEEP of 8. As per the 2 sons at the bedside. Patient does not ambulatory. Able to hold a conversation. Can feed himself.. Review of systems: Patient intubated. Past medical history to include: Atrophic ablation, asthma, heart failure, hypertension, osteomyelitis, obstructive sleep apnea, Social history: Currently at [facility]. No history of smoking or alcohol Physical examination: VITAL SIGNS: 98.2, 136, 18, 118/98, 92% on 15 L upon presentation GENERAL: BMI 60.4, laying in bed intubated. EYES: Pupils equal. Conjunctiva normal. HEENT: External appearance of nose and ears normal, oral cavity endotracheal tube. NECK: JVD unable to assess; masses not palpable. HEART: Heart sounds irregular no edema. LUNGS: Respiratory rate increased; diminished breath sounds. ABDOMEN: Soft, nontender, liver spleen not palpable, no masses palpable. PSYCH: Patient sedated. MUSCULOSKELETAL:No Clubbing/cyanosis;muscles-grossly intact. OA NEUROLOGICAL: [Cranial nerves grossly intact; no facial asymmetry, Lantus acute vocal responds to pain LYMPHATICS: No lymph nodes palpable in the axilla and neck INVESTIGATIONS, reviewed in the clinical context: White count 6.9 hemoglobin 7.5 platelets 203 ABG: PH 7.06 pCO2 more than 120 pO2 172 FiO2 100% Sodium 1:30 potassium 6 BUN 35 creatinine 0.51 Troponin I 0.048 Influenza type A, B, RSV, COVID-19: Not detected EKG tracing personally reviewed by me-atrial fibrillation, rate 127 Chest x-ray film personally reviewed by me-cardiomegaly. Prominent pulmonary artery. Questionable infiltrate Assessment and plan: -Pneumonia, suspected gram-negative organism. IV ceftriaxone -Acute hypoxic and hypercapnic respiratory failure secondary to pneumonia, possibly obesity hypoventilation syndrome Patient intubated. Ventilator assist. -Possible acute congestive heart legs exacerbation. Diastolic versus preserved LV function precipitated by rapid ventricular rate from A. fib Follow fluid status. -, Anxiety not otherwise specified Xanax when necessary -Obesity hypoventilation syndrome -Persistent atrial fibrillation, rate uncontrolled Patient is on Cardizem drip. Held because blood pressure came down. Cartilage E consulted. Eliquis -Morbid obesity BMI 60.4 -Septic shock IV levo fed -Chronic medical debility. Patient bedbound -Primary osteoarthritis Pain medications when necessary -Full code Intubated. Critical. IV levo fed, propofol. Consultation to fig washer, cardiology Discussed with patient 2 sons at the bedside. They'll bring in patient's advanced directives. Prognosis guarded Past Medical History Past Medical History: Atrial Fibrillation, Asthma, Heart Failure, Hypertension, Osteoarthritis (OA), Sleep Apnea/CPAP/BIPAP, Vascular Disorder History of Any Multi-Drug Resistant Organisms: None Reported Past Surgical History: No Surgical Hx Reported Smoking Status: Never smoker Past Alcohol Use History: None Reported Past Drug Use History: None Reported Medications and Allergies Home Medications Medication Instructions Recorded Confirmed Type ALPRAZolam [Xanax] 0.25 mg PO DAILY PRN 01/24/23 01/24/23 History ALPRAZolam [Xanax] 0.25 mg PO HS@2100 01/24/23 01/24/23 History Acetaminophen [Acetaminophen 8 hr] 650 mg PO Q4H PRN 01/24/23 01/24/23 History Albuterol Nebulized [Ventolin 2.5 mg INHALATION RT-Q4H PRN 01/24/23 01/24/23 History Nebulized] Albuterol Nebulized [Ventolin 2.5 mg INHALATION RT-QID 01/24/23 01/24/23 History Nebulized] Apixaban [Eliquis] 5 mg PO BID@0800,1700 01/24/23 01/24/23 History Azithromycin [Zithromax] 500 mg PO DAILY 01/24/23 01/24/23 History Benzonatate [Tessalon Perle] 200 mg PO TID@0800,1200,1700 01/24/23 01/24/23 History Cholecalciferol [Vitamin D3 (25 100 mcg PO DAILY@1700 01/24/23 01/24/23 History Mcg = 1000 Iu)] Docusate [Colace] 100 mg PO BID@0800,2100 01/24/23 01/24/23 History Fluticasone Nasal [place] [Flonase 1 spray EA NOSTRIL DAILY 01/24/23 01/24/23 History Nasal [place]] Furosemide [Lasix] 40 mg PO DAILY@0800 01/24/23 01/24/23 History L.acidoph,Paracasei, B.lactis 1 cap PO DAILY@0800 01/24/23 01/24/23 History [Probiotic] Magnesium Hydroxide [Milk of 7,200 mg PO DAILY PRN 01/24/23 01/24/23 History Magnesia Concentrate] Multivitamins, Thera [Multivitamin 1 tab PO DAILY@169901/24/23 01/24/23 History (formulary)] Na Phos,M-B/Na Phos,Di-Ba [Fleet 133 ml RECTAL DAILY PRN 01/24/23 01/24/23 History Adult] Potassium Chloride ER [K-Dur 10] 10 meq PO BID@0800,1700 01/24/23 01/24/23 History Sodium Chloride [Saline Mist] 1 spray EA NOSTRIL BID PRN 01/24/23 01/24/23 History Spironolactone [Aldactone] 25 mg PO BID@0800,1700 01/24/23 01/24/23 History bisacodyL [Dulcolax] 10 mg RECTAL DAILY PRN 01/24/23 01/24/23 History dilTIAZem HCL 30 mg PO TID@0800,1400,2200 01/24/23 01/24/23 History methylPREDNISolone [Medrol Dose See Taper PO DIRECTED 01/24/23 01/24/23 History Pack] polyethylene glycoL 3350 [Miralax] 17 gm PO DAILY@0800 01/24/23 01/24/23 History traMADol HCl [Ultram] 50 mg PO HS PRN 01/24/23 01/24/23 History Allergies Allergy/AdvReac Type Severity Reaction Status Date / Time alfalfa Allergy Unknown Verified 07/14/21 06:14 duloxetine [From Cymbalta] Allergy Unknown Verified 07/14/21 06:14 peach Allergy Unknown Verified 07/14/21 06:14 Penicillins Allergy Unknown Verified 07/14/21 06:14 Physical Exam Vitals: Vital Signs Temp Pulse Resp BP Pulse Ox FiO2 01/24/23 15:25 40 01/24/23 14:45 140 H 18 89/61 95 01/24/23 14:30 113 H 86 H 111/82 96 01/24/23 14:08 113 H 18 155/99 95 01/24/23 13:49 40 01/24/23 13:36 60 01/24/23 13:10 152 H 22 112/78 96 01/24/23 13:00 161 H 20 63/38 93 L 01/24/23 12:50 154 H 20 88/58 97 01/24/23 12:48 80 01/24/23 12:40 146 H 36 H 92/29 93 L 01/24/23 12:30 134 H 18 96/62 96 01/24/23 12:15 134 H 83/57 95 01/24/23 12:10 80 01/24/23 11:56 80 01/24/23 11:15 142 H 30 H 113/58 94 L 01/24/23 11:00 174 H 33 H 122/75 94 L 01/24/23 10:23 128 H 01/24/23 10:14 120 H 01/24/23 10:07 98.2 F 136 H 18 118/98 92 L Intake and Output 01/24/23 01/24/23 01/24/23 06:59 14:59 22:59 Intake Total 29.335 Balance 29.335 Intake: Intake, IV Titration 29.335 Amount Diltiazem 125 mg In 5.833 Sodium Chloride 0.9% 100 ml @ 5 MG/HR 5 mls/hr IV .Q24H [facility] Rx#:[id number] propofoL 1,000 mg In 23.502 Empty Bag 1 bag @ 15 MCG/ KG/MIN 13.472 mls/hr IV . Q7H26M [facility] Rx#:[id number] Other: Weight 149.685 kg Results CBC & Chem 7: 01/24/23 10:01/24/23 10:19 Labs: Abnormal Lab Results - Last 24 Hours (Table) 01/24/23 01/24/23 01/24/23 Range/Units 10: 10:19 10:19 RBC 5.91 H (3.80-5.40) m/uL Hgb 17.5 H (11.4-16.0) gm/dL Hct 54.2 H (34.0-46.0) % RDW 16.2 H (11.5-15.5) % Lymphocytes # 0.3 L (1.0-4.8) k/uL PT 13.0 H (9.0-12.0) sec INR 1.3 H (<1.2) APTT 32.7 H (22.0-30.0) sec ABG pH (7.35-7.45) ABG pCO2 (35-45) mmHg ABG pO2 (83-108) mmHg ABG HCO3 (21-25) mmol/L ABG Total CO2 (19-24) mmol/L ABG O2 Saturation (94-97) % Sodium 130 L (137-145) mmol/L Potassium 6.0 H (3.5-5.1) mmol/L Chloride 87 L (98-107) mmol/L Carbon Dioxide 38 H (22-30) mmol/L BUN 35 H (7-17) mg/dL Creatinine 0.51 L (0.52-1.04) mg/dL Glucose 125 H (74-99) mg/dL POC Glucose (mg/dL) (70-110) mg/dL Troponin I (0.000-0.034) ng/mL 01/24/23 01/24/23 01/24/23 Range/Units 10: 11:35 13:25 RBC (3.80-5.40) m/uL Hgb (11.4-16.0) gm/dL Hct (34.0-46.0) % RDW (11.5-15.5) % Lymphocytes # (1.0-4.8) k/uL PT (9.0-12.0) sec INR (<1.2) APTT (22.0-30.0) sec ABG pH 7.06 L* 7.20 L (7.35-7.45) ABG pCO2 >120 H* 80 H* (35-45) mmHg ABG pO2 172 H 170 H (83-108) mmHg ABG HCO3 31 H (21-25) mmol/L ABG Total CO2 33 H (19-24) mmol/L ABG O2 Saturation 98.6 H 99.6 H (94-97) % Sodium (137-145) mmol/L Potassium (3.5-5.1) mmol/L Chloride (98-107) mmol/L Carbon Dioxide (22-30) mmol/L BUN (7-17) mg/dL Creatinine (0.52-1.04) mg/dL Glucose (74-99) mg/dL POC Glucose (mg/dL) (70-110) mg/dL Troponin I 0.048 H* (0.000-0.034) ng/mL 01/24/23 Range/Units 15:25 RBC (3.80-5.40) m/uL Hgb (11.4-16.0) gm/dL Hct (34.0-46.0) % RDW (11.5-15.5) % Lymphocytes # (1.0-4.8) k/uL PT (9.0-12.0) sec INR (<1.2) APTT (22.0-30.0) sec ABG pH (7.35-7.45) ABG pCO2 (35-45) mmHg ABG pO2 (83-108) mmHg ABG HCO3 (21-25) mmol/L ABG Total CO2 (19-24) mmol/L ABG O2 Saturation (94-97) % Sodium (137-145) mmol/L Potassium (3.5-5.1) mmol/L Chloride (98-107) mmol/L Carbon Dioxide (22-30) mmol/L BUN (7-17) mg/dL Creatinine (0.52-1.04) mg/dL Glucose (74-99) mg/dL POC Glucose (mg/dL) 169 H (70-110) mg/dL Troponin I (0.000-0.034) ng/mL
[2023-01-24] MEDS: NOREPINEPHRINE 4 MG in SODIUM CHLORIDE 0.9% 250 ML IV SCH ×3 (16:35→23:44)
[2023-01-24] MEDS: ALBUTEROL NEBULIZED 2.5 MG/3 ML INHALATION SCH ×3 (17:14→23:18)
[2023-01-24] MEDS: IPRATROPIUM 0.5 MG/2.5 ML NEBU INHALATION SCH ×3 (17:14→23:18)
[2023-01-24] MEDS: APIXABAN 5 MG TAB PO SCH (18:25)
[2023-01-24] MEDS: SODIUM CHLORIDE 0.9% 1,000 ML IV SCH (18:29)
[2023-01-24] MEDS: DEXAMETHASONE SOD PHOSPHATE 10 MG/ML 1 ML VIAL IVP SCH (20:52)
[2023-01-24 23:33] LABS: Glucose,Whole Blood 123 mg/dL (70-110)
[2023-01-25] MEDS ORDERED: FUROSEMIDE 10 MG/ML 10 ML VIAL IV STA (01:31)
[2023-01-25] MEDS: DILTIAZEM 125 MG in SODIUM CHLORIDE 0.9% 100 ML IV SCH (01:43)
[2023-01-25] MEDS: ALBUTEROL NEBULIZED 2.5 MG/3 ML INHALATION SCH ×5 (03:04→20:32)
[2023-01-25] MEDS: IPRATROPIUM 0.5 MG/2.5 ML NEBU INHALATION SCH ×5 (03:04→20:32)
[2023-01-25] MEDS: SODIUM CHLORIDE 0.9% 1,000 ML IV SCH ×2 (05:21→15:48)
[2023-01-25 05:37] LABS: Glucose,Whole Blood 146 mg/dL (70-110)
[2023-01-25 05:52] LABS: ABG Base Excess 0.5 mmol/L; ABG HCO3 27 mmol/L (21-25); ABG PCO2 55 mmHg (35-45); ABG PO2 66 mmHg (83-108); ABG TCO2 29 mmol/L (19-24); Allen Test Performed? Yes
[2023-01-25 07:33] LABS: Calcium 8.2 mg/dL (8.4-10.2); Potassium 4.7 mmol/L (3.5-5.1)
[2023-01-25 07:38] LABS: Anisocytosis Slight; Basophils # (A) 0.1 k/uL (0-0.2); Basophils % (A) 0 %; Eosinophils % (A) 0 %; HCT 52.1 % (34.0-46.0); HGB 16.3 gm/dL (11.4-16.0); Lymphocytes # (A) 0.3 k/uL (1.0-4.8); Lymphocytes % (A) 1 %; MCH 28.8 pg (25.0-35.0); MCHC 31.2 g/dL (31.0-37.0); MCV 92.1 fL (80.0-100.0); Mean Platelet Volume 8.3; Monocytes # (A) 1.2 k/uL (0-1.0); Monocytes % (A) 5 %; Neutrophils # (A) 22.2 k/uL (1.3-7.7); Neutrophils % (A) 93 %; Platelet Count 218 k/uL (150-450); RBC 5.66 m/uL (3.80-5.40); RDW 16.3 % (11.5-15.5); WBC 23.8 k/uL (3.8-10.6)
[2023-01-25] MEDS: PANTOPRAZOLE 40 MG/10 ML VIAL IVP SCH (08:14)
[2023-01-25] MEDS: DEXAMETHASONE SOD PHOSPHATE 10 MG/ML 1 ML VIAL IVP SCH ×2 (08:14→20:33)
[2023-01-25] MEDS: APIXABAN 5 MG TAB PO SCH ×2 (08:16→18:18)
--- NOTE | 2023-01-25 08:40 | XR ---
EXAMINATION TYPE: XR chest 1V portable DATE OF EXAM: 01/25/2023 Comparison: 01/24/2023 Clinical History: 77-year-old female shortness of breath, assess lungs, ET tube Findings: ET tube satisfactory. NG tube tip below the diaphragm. The sidehole is just above the GE junction lev el. Consider further advancement by 5 cm so that it enters the stomach. Heart is moderately enlarged. Mild interstitial prominence similar. Mild hyperinflation. No consolidation or pleural effusion. Donya pect large main pulmonary arteries. Impression: 1. Overall similar exam. Moderate cardiomegaly and suspected COPD. Correlate for possible mild pulmon jose vascular congestion. 2. NG tube could be advanced further by 5 cm so that the sidehole enters the stomach.
--- NOTE | 2023-01-25 09:42 | P.CRDCN ---
History of Present Illness History of present illness: HISTORY OF PRESENTING ILLNESS Patient is a pleasant 77-year-old female with history of atrial fibrillation, obesity, obesity hypoventilation syndrome. She presented with increased shortness breath, wheezing and had recently been started on antibiotics and steroids by her primary care physician. On arrival to the ER she was hypoxic and placed on nonrebreather however became more confused and eventually intubated. She is found have severe CO2 narcosis with pCO2 120. She has been receiving IV fluids secondary to decreased urine output with intermittent Lasix. Procrit was noted to be normal. ProBNP elevated at 3300. Troponin mildly elevated at 0.04. No repeat was performed. She is currently on FiO2 40% with a PEEP of 8. She is on low-dose norepinephrine 0.11. Blood pressure is borderline. Bonding Equipment Operator consult with secondary to [place] solis with RVR initially heart rates in the 140s to 150s in the ER. She was started on Cardizem drip which was increased to 10 mg and heart rates better controlled in the 90s to 110s. EKG shows atrial fibrillation with mild RVR with nonspecific T-wave inversions. REVIEW OF SYSTEMS At the time of my exam: Unable to perform secondary to intubation PHYSICAL EXAMINATION Vital signs reviewed. CONSTITUTIONAL: No apparent distress, sedated on vent. HEENT: Head is normocephalic. Pupils are equal, round. Sclerae anicteric. Mucous membranes of the mouth are moist. No JVD. No carotid bruit. CHEST EXAMINATION: Decreased breath sounds bilaterally HEART EXAMINATION: Irregular rate and rhythm. S1, S2 heard. No murmurs, gallops or rub. ABDOMEN: Soft, nontender. Positive bowel sounds. EXTREMITIES: 2+ peripheral pulses, no lower extremity edema and no calf tenderness. NEUROLOGIC EXAMINATION: Patient is Sedated ASSESSMENT 1. Acute on chronic hypoxic and hypercapnic respiratory failure 2. Chronic diastolic heart failure 3. Persistent atrial fibrillation with RVR somewhat improved on Cardizem drip 4. Hypertension, currently hypotensive 5. Obesity 6. Minimally elevated troponin likely troponin leak related to hypoxia PLAN Continue with current supportive care on ventilator. She appears to be recovering neurologically and following commands per nursing. Wean ventilator as able. Continue to assess need for diuretics. Check 2-D echo 70 left ventricular ejection fraction. Check repeat troponin with first troponin likely related to hypoxia and respiratory failure. Continue with Cardizem drip for now and transition back to home on oral Cardizem when able. Continue with anticoagulation. Further recommendations to follow. Past Medical History Past Medical History: Atrial Fibrillation, Asthma, Heart Failure, Hypertension, Osteoarthritis (OA), Sleep Apnea/CPAP/BIPAP, Vascular Disorder History of Any Multi-Drug Resistant Organisms: None Reported Past Surgical History: No Surgical Hx Reported, Hysterectomy Additional Past Surgical History / Comment(s): hysterectomy r/t CA, surgery "down there" according to son Past Anesthesia/Blood Transfusion Reactions: No Reported Reaction Smoking Status: Never smoker - Past Family History Father History Unknown: Yes Additional Family Medical History / Comment(s): lived to late Mother Family Medical History: Congestive Heart Failure (CHF) Additional Family Medical History / Comment(s): lived until his s Medications and Allergies Home Medications Medication Instructions Recorded Confirmed Type ALPRAZolam [Xanax] 0.25 mg PO DAILY PRN 01/24/23 01/24/23 History ALPRAZolam [Xanax] 0.25 mg PO HS@209901/24/23 01/24/23 History Acetaminophen [Acetaminophen 8 hr] 650 mg PO Q4H PRN 01/24/23 01/24/23 History Albuterol Nebulized [Ventolin 2.5 mg INHALATION RT-Q4H PRN 01/24/23 01/24/23 History Nebulized] Albuterol Nebulized [Ventolin 2.5 mg INHALATION RT-QID 01/24/23 01/24/23 History Nebulized] Apixaban [Eliquis] 5 mg PO BID@0800,1700 01/24/23 01/24/23 History Azithromycin [Zithromax] 500 mg PO DAILY 01/24/23 01/24/23 History Benzonatate [Tessalon Perle] 200 mg PO TID@0800,1200,1700 01/24/23 01/24/23 History Cholecalciferol [Vitamin D3 (25 100 mcg PO DAILY@17001/24/23 01/24/23 History Mcg = 1000 Iu)] Docusate [Colace] 100 mg PO BID@0800,2100 01/24/23 01/24/23 History Fluticasone Nasal [place] [Flonase 1 spray EA NOSTRIL DAILY 01/24/23 01/24/23 History Nasal [place]] Furosemide [Lasix] 40 mg PO DAILY@0800 01/24/23 01/24/23 History L.acidoph,Paracasei, B.lactis 1 cap PO DAILY@0800 01/24/23 01/24/23 History [Probiotic] Magnesium Hydroxide [Milk of 7,200 mg PO DAILY PRN 01/24/23 01/24/23 History Magnesia Concentrate] Multivitamins, Thera [Multivitamin 1 tab PO DAILY@1700 01/24/23 01/24/23 History (formulary)] Na Phos,M-B/Na Phos,Di-Ba [Fleet 133 ml RECTAL DAILY PRN 01/24/23 01/24/23 History Adult] Potassium Chloride ER [K-Dur 10] 10 meq PO BID@0800,1700 01/24/23 01/24/23 History Sodium Chloride [Saline Mist] 1 spray EA NOSTRIL BID PRN 01/24/23 01/24/23 History Spironolactone [Aldactone] 25 mg PO BID@0800,1700 01/24/23 01/24/23 History bisacodyL [Dulcolax] 10 mg RECTAL DAILY PRN 01/24/23 01/24/23 History dilTIAZem HCL 30 mg PO TID@0800,1400,2200 01/24/23 01/24/23 History methylPREDNISolone [Medrol Dose See Taper PO DIRECTED 01/24/23 01/24/23 History Pack] polyethylene glycoL 3350 [Miralax] 17 gm PO DAILY@0800 01/24/23 01/24/23 History traMADol HCl [Ultram] 50 mg PO HS PRN 01/24/23 01/24/23 History Allergies Allergy/AdvReac Type Severity Reaction Status Date / Time alfalfa Allergy Unknown Verified 07/14/21 06:14 duloxetine [From Cymbalta] Allergy Unknown Verified 07/14/21 06:14 peach Allergy Unknown Verified 07/14/21 06:14 Penicillins Allergy Unknown Verified 07/14/21 06:14 Physical Exam Vitals: Vital Signs Temp Pulse Resp BP Pulse Ox FiO2 01/25/23 09:00 98.2 F 128 H 18 89/59 88 L 40 01/25/23 08:30 98 01/25/23 08:15 100 01/25/23 08:00 98.2 F 104 H 18 85/52 92 L 01/25/23 07:42 40 01/25/23 07:00 99 18 103/64 92 L 01/25/23 06:00 105 H 18 85/69 92 L 01/25/23 05:00 103 H 18 93/74 92 L 01/25/23 04:00 100 18 87/53 92 L 40 01/25/23 03:23 101 H 01/25/23 03:20 22 87/52 94 L 01/25/23 03:10 40 01/25/23 03:04 107 H 01/25/23 03:00 133 H 18 108/64 01/25/23 02:40 105 H 18 108/70 01/25/23 02:20 118 H 18 97/76 01/25/23 02:00 107 H 18 105/77 01/25/23 01:40 101 H 18 100/71 01/25/23 01:20 111 H 9 L 106/70 01/25/23 01:00 105 H 18 115/61 01/25/23 00:40 97 18 93/73 01/25/23 00:20 98 18 106/66 95 01/25/23 00:00 97.6 F 93 18 100/71 95 40 01/24/23 23:41 94 01/24/23 23:40 95 18 127/90 99 01/24/23 23:27 40 01/24/23 23:20 89 11 L 118/81 89 L 01/24/23 23:18 93 01/24/23 23:01 95 14 113/68 01/24/23 23:00 105 H 18 113/68 90 L 01/24/23 22:40 96 3 L 107/74 92 L 01/24/23 22:20 103 H 18 106/85 93 L 01/24/23 22:00 90 18 106/76 92 L 01/24/23 21:40 90 18 108/79 90 L 01/24/23 21:20 100 18 99/79 89 L 01/24/23 21:00 101 H 18 119/93 90 L 01/24/23 20:40 94 18 110/66 91 L 01/24/23 20:20 101 H 18 107/78 91 L 01/24/23 20:00 98.8 F 86 18 102/71 90 L 40 01/24/23 19:40 99 18 121/83 94 L 01/24/23 19:38 99 01/24/23 19:22 94 40 01/24/23 19:20 99 18 115/82 90 L 01/24/23 19:00 94 18 96/75 90 L 40 01/24/23 18:40 96 18 129/100 92 L 01/24/23 18:20 107 H 18 116/83 88 L 01/24/23 18:00 105 H 18 95/55 88 L 01/24/23 17:40 111 H 18 122/72 90 L 01/24/23 17:20 118 H 18 107/75 88 L 01/24/23 17:00 121 H 18 92/74 86 L 01/24/23 16:45 133 H 17 91/55 89 L 01/24/23 16:30 141 H 18 89 L 01/24/23 16:15 130 H 18 89 L 01/24/23 16:00 128 H 18 88 L 40 01/24/23 15:45 97.7 F 140 H 18 104/84 89 L 40 01/24/23 15:25 40 01/24/23 15:00 147 H 13 94 L 01/24/23 14:45 140 H 18 89/61 95 01/24/23 14:30 113 H 86 H 111/82 96 01/24/23 14:08 113 H 18 155/99 95 01/24/23 13:49 40 01/24/23 13:36 60 01/24/23 13:10 152 H 22 112/78 96 01/24/23 13:00 161 H 20 63/38 93 L 01/24/23 12:50 154 H 20 88/58 97 01/24/23 12:48 80 01/24/23 12:40 146 H 36 H 92/29 93 L 01/24/23 12:30 134 H 18 96/62 96 01/24/23 12:15 134 H 83/57 95 01/24/23 12:10 80 01/24/23 11:56 80 01/24/23 11:15 142 H 30 H 113/58 94 L 01/24/23 11:00 174 H 33 H 122/75 94 L 01/24/23 10:23 128 H 01/24/23 10:14 120 H 01/24/23 10:07 98.2 F 136 H 18 118/98 92 L Intake and Output 01/24/23 01/25/23 01/25/23 22:59 06:59 14:59 Intake Total 2197.315 1908.757 320 Output Total 110 240 70 Balance 0162.674 5487.757 250 Intake: IV 40 0.9NS 40 Intake, IV Titration 2360.522 0912.757 300 Amount Diltiazem 125 mg In 0 67.333 Sodium Chloride 0.9% 100 ml @ 10 MG/HR 10 mls/hr IV .[id number] [facility] Rx#: [id number] Norepinephrine 4 mg In 254.000 415.965 Sodium Chloride 0.9% 250 ml @ 0.03 MCG/KG/MIN 17. 109 mls/hr IV .[id number] [facility] Rx#:[id number] Sodium Chloride 0.9% 1, 400 800 200 000 ml @ 100 mls/hr IV . Q10H [facility] Rx#:[id number] Sodium Chloride 0.9% 1, 1000 1000 000 ml @ 999 mls/hr IV . Q1H1M [facility] Rx#:[id number] propofoL 1,000 mg In 65.488 11.459 100 Empty Bag 1 bag @ 15 MCG/ KG/MIN 13.472 mls/hr IV . Q7H26M [facility] Rx#:[id number] Tube Feeding 20 20 Other 30 Output: Urine 110 240 70 Other: Voiding Method Indwelling Catheter Indwelling Catheter Weight 149.685 kg 166.6 kg Results 01/25/23 06:06 01/25/23 06:06 Cardiac Enzymes 01/24/23 01/24/23 Range/Units 10:19 10:19 AST 36 (14-36) U/L Troponin I 0.048 H* (0.000-0.034) ng/mL Coagulation 01/24/23 Range/Units 10:19 PT 13.0 H (9.0-12.0) sec APTT 32.7 H (22.0-30.0) sec CBC 01/24/23 01/25/23 Range/Units 10:19 06:06 WBC 6.9 23.8 H (3.8-10.6) k/uL RBC 5.91 H 5.66 H (3.80-5.40) m/uL Hgb 17.5 H 16.3 H (11.4-16.0) gm/dL Hct 54.2 H 52.1 H (34.0-46.0) % Plt Count 203 218 (150-450) k/uL Comprehensive Metabolic Panel 01/24/23 01/24/23 01/25/23 Range/Units 10:19 16:05 06:06 Sodium 130 L 132 L (137-145) mmol/L Potassium 6.0 H 4.8 4.7 (3.5-5.1) mmol/L Chloride 87 L 99 (98-107) mmol/L Carbon Dioxide 38 H 24 (22-30) mmol/L BUN 35 H 41 H (7-17) mg/dL Creatinine 0.51 L 0.75 (0.52-1.04) mg/dL Glucose 125 H 145 H (74-99) mg/dL Calcium 8.9 8.2 L (8.4-10.2) mg/dL AST 36 (14-36) U/L ALT 27 (4-34) U/L Alkaline Phosphatase 95 (38-126) U/L Total Protein 7.3 (6.3-8.2) g/dL Albumin 3.7 (3.5-5.0) g/dL Current Medications Generic Name Dose Route Start Last Admin Trade Name Freq PRN Reason Stop Dose Admin Acetaminophen 650 mg 01/24/23 16:20 Acetaminophen Tab 325 Mg Tab PO Q4H PRN GENERAL DISCOMFORT Albuterol Sulfate 2.5 mg 01/24/23 16:00 01/25/23 08:15 Albuterol Nebulized 2.5 Mg/3 Ml INHALATION 2.5 mg RT-Q4H [facility] Administration Alprazolam 0.25 mg 01/24/23 16:20 Alprazolam 0.25 Mg Tab PO DAILY PRN Anxiety Apixaban 5 mg 01/24/23 17:00 01/25/23 08:16 Apixaban 5 Mg Tab PO 5 mg BID@0800,1700 [facility] Administration Protocol Dexamethasone Sodium Phosphate 6 mg 01/24/23 21:00 01/25/23 08:14 Dexamethasone Sod Phosphate 10 Mg/Ml 1 Ml Vial IVP 6 mg BID [facility] Administration Diltiazem HCl 125 mg/ Sodium 125 mls @ 10 mls/hr 01/24/23 10:45 01/25/23 01:43 Chloride IV 10 mg/hr .[id number] [facility] 10 mls/hr Administration 10 MG/HR Propofol 1,000 mg/ IV Solution 100 mls @ 13.472 mls/hr 01/24/23 12:15 01/25/23 09:34 IV 30 mcg/kg/min .Q7H26M [facility] 26.943 mls/hr Administration Protocol 15 MCG/KG/MIN Azithromycin 500 mg/ Sodium 250 mls @ 250 mls/hr 01/24/23 14:15 01/24/23 15:37 Chloride IVPB 01/26/23 09:59 250 mls/hr DAILY [facility] Administration Protocol Ceftriaxone Sodium 2 gm/ 50 mls @ 100 mls/hr 01/24/23 14:15 01/25/23 08:16 Sodium Chloride IVPB 100 mls/hr Q24HR [facility] Administration Protocol Norepinephrine Bitartrate 4 mg 254 mls @ 17.109 mls/hr 01/24/23 16:00 01/25/23 04:45 / Sodium Chloride IV Infused .[id number] [facility] Titration Protocol 0.03 MCG/KG/MIN Sodium Chloride 1,000 mls @ 100 mls/hr 01/24/23 18:30 01/25/23 05:21 Saline 0.9% IV 100 mls/hr .Q10H [facility] Administration Ipratropium [place] 0.5 mg 01/24/23 16:00 01/25/23 08:15 Ipratropium 0.5 Mg/2.5 Ml Nebu INHALATION 0.5 mg RT-Q4H [facility] Administration Naloxone HCl 0.2 mg 01/24/23 13:39 Naloxone 0.4 Mg/Ml 1 Ml Vial IV Q2M PRN Opioid Reversal Pantoprazole Sodium 40 mg 01/24/23 15:15 01/25/23 08:14 Pantoprazole 40 Mg/10 Ml Vial IVP 40 mg DAILY [facility] Administration Intake and Output 01/24/23 01/25/23 01/25/23 22:59 06:59 14:59 Intake Total 7829.798 5804.757 320 Output Total 110 240 70 Balance 1430.940 7660.757 250 Intake: IV 40 0.9NS 40 Intake, IV Titration 4687.832 3686.757 300 Amount Diltiazem 125 mg In 0 67.333 Sodium Chloride 0.9% 100 ml @ 10 MG/HR 10 mls/hr IV .[id number] [facility] Rx#: [id number] Norepinephrine 4 mg In 254.000 415.965 Sodium Chloride 0.9% 250 ml @ 0.03 MCG/KG/MIN 17. 109 mls/hr IV .[id number] [facility] Rx#:[id number] Sodium Chloride 0.9% 1, 400 800 200 000 ml @ 100 mls/hr IV . Q10H [facility] Rx#:[id number] Sodium Chloride 0.9% 1, 1000 1000 000 ml @ 999 mls/hr IV . Q1H1M [facility] Rx#:[id number] propofoL 1,000 mg In 65.488 11.459 100 Empty Bag 1 bag @ 15 MCG/ KG/MIN 13.472 mls/hr IV . Q7H26M [facility] Rx#:[id number] Tube Feeding 20 20 Other 30 Output: Urine 110 240 70 Other: Voiding Method Indwelling Catheter Indwelling Catheter Weight 149.685 kg 166.6 kg 01/25/23 06:06 01/25/23 06:06
[2023-01-25] MEDS: AZITHROMYCIN 500 MG in SODIUM CHLORIDE 0.9% 250 ML IVPB SCH (10:04)
[2023-01-25] MEDS ORDERED: CISATRACURIUM 2 MG/ML 5 ML VIAL IV ONE (10:53)
[2023-01-25 11:47] LABS: ABG Base Excess -0.5 mmol/L; ABG HCO3 26 mmol/L (21-25); ABG Oxygen Saturation 91.3 % (94-97); ABG PCO2 54 mmHg (35-45); ABG PH 7.29 (7.35-7.45); ABG PO2 67 mmHg (83-108); ABG TCO2 28 mmol/L (19-24)
[2023-01-25 11:48] LABS: Allen Test Performed? no
[2023-01-25 11:51] LABS: Glucose,Whole Blood 156 mg/dL (70-110)
--- NOTE | 2023-01-25 12:10 | XR ---
EXAMINATION TYPE: XR chest 1V confirm line [facility] DATE OF EXAM: 01/25/2023 COMPARISON: Earlier today HISTORY: 77-year-old female unsuccessful central line placement on the left side. TECHNIQUE: Single frontal view of the chest is obtained. FINDINGS: Exam remains rotated towards the right. Heart remains mildly enlarged. Interstitial promin ence is similar. NG tube sidehole remains short, just above the GE junction level. ET tube satisfacto ry. No appreciable pneumothorax. IMPRESSION: No appreciable pneumothorax. Unchanged from earlier today.
--- NOTE | 2023-01-25 12:18 | P.PN ---
Subjective Progress Note Date: 01/25/23 Principal diagnosis: Acute on chronic hypercapnic respiratory failure and acute hypoxic respiratory failure This is a 77-year-old female with history of morbid obesity, obesity hy poventilation syndrome, chronic atrial fibrillation, no previous smoking history, nonetheless the patient is normally maintained on albuterol, suspect underlying bronchial asthma. Patient is also on BiPAP for obstructive sleep apnea syndrome and obesity hypoventilation syndrome. Has been compliant with the machine for the last few months. Patient was brought in by EMS this morning complaining of increased shortness of breath and cough, intermittent wheezing, patient was recently started on antibiotics and steroids by her primary care physician but apparently did not improve her much. Upon arrival to the ER, her O2 saturation was in the 80s patient was placed on a nonrebreather mask, her oxygenation improved, however the patient became obtunded and developed acute on chronic hypercapnic respiratory failure. Patient was intubated by the ER physician and I was asked to see her on consultation. I saw the patient down in the ER, she is intubated, sedated, on mechanical ventilation, she is on assist control rate of 20, tidal volume 400, FiO2 was on 60% and I cut it down to 35%, and PEEP was increased from 5-8. ABG which was done on 80% showed a pCO2 of 80 be O2 of 170 pH of 7.20 prior ABG showed a pO2 of 172 pCO2 above 120 pH of 7.06. Looking at her electrolytes, patient had elevated potassium of 6.0 at a baseline bicarb is 38, she has normal renal status. Based on the fact that the patient has elevated bicarb of 38, that means the patient has chronic hypercapnia with metabolic compensation for her chronic respiratory acidosis at any rate patient is now on mechanical ventilation, and the plan is to transfer the patient to the ICU shortly once a bed becomes available. Chest x-ray showed moderate cardiomegaly, prominence of the pulmonary vasculature, and possibly some component of interstitial edema. EKG showed atrial fibrillation with RVR, otherwise no acute ischemic changes BNP level is elevated at 3320 and a troponin is 0.048. Final screening including screening for COVID-19 infection is negative. Patient was reevaluated today 01/25/2023, remains in the ICU, intubated and mechanically ventilated. No major events overnight, patient is requiring norepinephrine drip she is also on Cardizem drip. Her ventilator settings are assist control rate of 18,000 volume 400 FiO2 40% and PEEP of 8. ABG showed a pO2 of 67 pCO2 54 pH of 7.29, hence I increased her FiO2 up to 45%, and I increased her rate up to 20 from 18. Patient is on propofol at 50 mg per coul d've per minute norepinephrine at 0.18 mcg/kg/m Cardizem 10 mg per hour, she is also on Vicodin Hb at 10 mL per hour. Patient received significant amount of fluid boluses yesterday, continued to have very poor and marginal urine output, and she received a dose of Lasix, and her urine output is now about 30-40 mL per hour. Chest x-ray continues to show interstitial prominence. No clear-cut evidence of pulmonary edema, there is mild pulmonary vascular congestion. WBC count today is 23.8 hemoglobin is 16.3. Electrolytes are normal, BUN is 41 creatinine is 0.75, troponin level is 0.270. Patient remains empirically on antibiotics in the form of Rocephin and Zithromax, she is also on eliquis for her previous history of chronic atrial fibrillation, she is on GI prophylaxis, and she is also on bronchodilators in the form of DuoNeb. Objective - Vital Signs Vital signs: Vital Signs Temp 98.2 F 01/25/23 09:00 Pulse 100 01/25/23 11:54 Resp 18 01/25/23 09:00 BP 89/59 01/25/23 09:00 Pulse Ox 88 L 01/25/23 09:00 FiO2 45 01/25/23 11:49 Intake & Output 01/24/23 01/25/23 01/25/23 18:59 06:59 18:59 Intake Total 236.842 3312.065 430 Output Total 45 305 100 Balance 510.681 8467.065 330 Weight 149.685 kg 166.6 kg Intake: IV 40 0.9NS 40 Intake, IV Titration 580.341 7190.065 400 Amount Diltiazem 125 mg In 5.833 67.333 Sodium Chloride 0.9% 100 ml @ 10 MG/HR 10 mls/hr IV .[id number] [facility] Rx#: [id number] Norepinephrine 4 mg In 155.692 514.273 Sodium Chloride 0.9% 250 ml @ 0.03 MCG/KG/MIN 17. 109 mls/hr IV .[id number] [facility] Rx#:[id number] Sodium Chloride 0.9% 1, 1200 300 000 ml @ 100 mls/hr IV . Q10H [facility] Rx#:[id number] Sodium Chloride 0.9% 1, 2000 000 ml @ 999 mls/hr IV . Q1H1M [facility] Rx#:[id number] propofoL 1,000 mg In 88.990 11.459 100 Empty Bag 1 bag @ 15 MCG/ KG/MIN 13.472 mls/hr IV . Q7H26M [facility] [place] Rx#:[id number] Tube Feeding 20 30 Other 30 Output: Urine 45 305 100 Other: Voiding Method Indwelling Catheter Indwelling Catheter - Exam Physical Exam: Revealed 77-year-old female, obese, intubated mechanically ventilated sedated on propofol. Head: Atraumatic, normocephalic, endotracheal tube is intact. HEENT: PERRLA, EOMI, anicteric, dry mucous membranes. Short obese neck is noted. Cardiac: Irregular irregular rhythm, distant S1 and S2, no S3 gallop, no murmur. Chest: [Symmetrical chest and crackles at the bases no rhonchi and no wheezes.. Abdomen: [Morbidly Obese, Soft, nontender, no megaly, no rebound, no guarding, normal bowel sounds.] Extremities: [No clubbing, no edema, no cyanosis.] Neurological Exam: [Could not assess, patient is sedated, on propofol, however according to nurses she was following instructions on lower dose of propofol Psychiatric: Could not assess. Skin: No rashes. - Labs CBC & Chem 7: 01/25/23 06:06 01/25/23 06:06 Labs: Abnormal Lab Results - Last 24 Hours (Table) 01/24/23 01/24/23 01/24/23 Range/Units 10:19 11:35 13:25 WBC (3.8-10.6) k/uL RBC (3.80-5.40) m/uL Hgb (11.4-16.0) gm/dL Hct (34.0-46.0) % RDW (11.5-15.5) % Neutrophils # (1.3-7.7) k/uL Lymphocytes # (1.0-4.8) k/uL Monocytes # (0-1.0) k/uL ABG pH 7.06 L* 7.20 L (7.35-7.45) ABG pCO2 >120 H* 80 H* (35-45) mmHg ABG pO2 172 H 170 H (83-108) mmHg ABG HCO3 31 H (21-25) mmol/L ABG Total CO2 33 H (19-24) mmol/L ABG O2 Saturation 98.6 H 99.6 H (94-97) % Sodium (137-145) mmol/L BUN (7-17) mg/dL Glucose (74-99) mg/dL POC Glucose (mg/dL) (70-110) mg/dL Calcium (8.4-10.2) mg/dL Troponin I (0.000-0.034) ng/mL Procalcitonin 0.11 H (0.02-0.09) ng/mL 01/24/23 01/24/23 01/25/23 Range/Units 15:25 23:32 05:36 WBC (3.8-10.6) k/uL RBC (3.80-5.40) m/uL Hgb (11.4-16.0) gm/dL Hct (34.0-46.0) % RDW (11.5-15.5) % Neutrophils # (1.3-7.7) k/uL Lymphocytes # (1.0-4.8) k/uL Monocytes # (0-1.0) k/uL ABG pH (7.35-7.45) ABG pCO2 (35-45) mmHg ABG pO2 (83-108) mmHg ABG HCO3 (21-25) mmol/L ABG Total CO2 (19-24) mmol/L ABG O2 Saturation (94-97) % Sodium (137-145) mmol/L BUN (7-17) mg/dL Glucose (74-99) mg/dL POC Glucose (mg/dL) 169 H 123 H 146 H (70-110) mg/dL Calcium (8.4-10.2) mg/dL Troponin I (0.000-0.034) ng/mL Procalcitonin (0.02-0.09) ng/mL 01/25/23 01/25/23 01/25/23 Range/Units 05:50 06:06 06:06 WBC 23.8 H (3.8-10.6) k/uL RBC 5.66 H (3.80-5.40) m/uL Hgb 16.3 H (11.4-16.0) gm/dL Hct 52.1 H (34.0-46.0) % RDW 16.3 H (11.5-15.5) % Neutrophils # 22.2 H (1.3-7.7) k/uL Lymphocytes # 0.3 L (1.0-4.8) k/uL Monocytes # 1.2 H (0-1.0) k/uL ABG pH 7.30 L (7.35-7.45) ABG pCO2 55 H (35-45) mmHg ABG pO2 66 L (83-108) mmHg ABG HCO3 27 H (21-25) mmol/L ABG Total CO2 29 H (19-24) mmol/L ABG O2 Saturation 91.0 L (94-97) % Sodium 132 L (137-145) mmol/L BUN 41 H (7-17) mg/dL Glucose 145 H (74-99) mg/dL POC Glucose (mg/dL) (70-110) mg/dL Calcium 8.2 L (8.4-10.2) mg/dL Troponin I (0.000-0.034) ng/mL Procalcitonin (0.02-0.09) ng/mL 01/25/23 01/25/23 01/25/23 Range/Units 06:06 11:45 11:50 WBC (3.8-10.6) k/uL RBC (3.80-5.40) m/uL Hgb (11.4-16.0) gm/dL Hct (34.0-46.0) % RDW (11.5-15.5) % Neutrophils # (1.3-7.7) k/uL Lymphocytes # (1.0-4.8) k/uL Monocytes # (0-1.0) k/uL ABG pH 7.29 L (7.35-7.45) ABG pCO2 54 H (35-45) mmHg ABG pO2 67 L (83-108) mmHg ABG HCO3 26 H (21-25) mmol/L ABG Total CO2 28 H (19-24) mmol/L ABG O2 Saturation 91.3 L (94-97) % Sodium (137-145) mmol/L BUN (7-17) mg/dL Glucose (74-99) mg/dL POC Glucose (mg/dL) 156 H (70-110) mg/dL Calcium (8.4-10.2) mg/dL Troponin I 0.270 H* (0.000-0.034) ng/mL Procalcitonin (0.02-0.09) ng/mL Microbiology - Last 24 Hours (Table) 01/24/23 12:05 Gram Stain - Preliminary Sputum Sputum Culture - Preliminary Assessment and Plan Assessment: Impression: Acute on chronic hypercapnic respiratory failure Acute hypoxic respiratory failure Obesity/hypoventilation syndrome Suspect underlying bronchial asthma with acute exacerbation of asthma Acute tracheobronchitis, doubt pneumonia. Possible sepsis. Doubt septic shock had hypotension is most likely hypovolemic in nature Chronic diastolic congestive heart failure Suspect pulmonary hypertension secondary to above. Chronic atrial fibrillation with RVR Morbid obesity with obesity/hypoventilation syndrome Lifetime nonsmoker Medical debility, patient is bed ridden at senior care Recommendation: Continue ventilatory support based on her ABG, patient is not quite ready for we aning. Hence we'll continue ventilatory support. Continue bronchodilators Continue cautious hydration on this patient. Echocardiogram in a.m. assess LV function and severity of her pulmonary hyperten ene. Cardiology is addressing her atrial fibrillation, presently on Cardizem she is also on eliquis. Empiric antibiotics in the form of Rocephin and Zithromax, we'll adjust based on sputum cultures. Patient presented initially with symptoms of bronchitis when she was seen in the ER. Nutritional support/enteral feeding GI and DVT prophylaxis Continue anticoagulation Central line was placed today, this was placed in the right groin, could not thread the wire through the left IJ or the left subclavian then went ahead and placed a right femoral triple-lumen catheter. Although I was able to access the right IJ and the right subclavian vein was easily without any difficulty on every attempt Patient is critically ill. Critical care time is over 30 minutes, not including the time spent on pr ocedures Time with Patient: Greater than 30
--- NOTE | 2023-01-25 12:29 | P.PN ---
Progress Note - Text Progress Note Date: 01/25/23 Chief Complaint: Short of breath This is a 77-year-old patient who follows with Dr. Garcia at [facility]. As per the EMS report and ER patient's entire being in the facilities had influenza like symptoms on and off for all week. Patient was noted to be having increasing shortness of breath since yesterday. Patient started antibiotics and steroids yesterday. Patient today was 88% on 2 L. And on 4 L and was 90% normally does 97-99% with 2 L. Patient is alert but in shortness of breath. Patient's oxygen did drop down to 86%. Patient also had a dry cough for 2-3 days. Was put on 6 L of oxygen. In the ER patient's started becoming more obtunded. Becoming more difficult use the BiPAP. Blood gas came back showing the pCO2 greater than 120. Patient was intubated. Also patient was in IV Cardizem drip because of controlled A. fib. Blood pressure dropped and Cardizem drip was discontinued. Patient is put on propofol. Patient's currently on FiO2 40 and a PEEP of 8. As per the 2 sons at the bedside. Patient does not ambulatory. Able to hold a conversation. Can feed himself.. Admitted with pneumonia, acute hypoxic hypercapnic respiratory failure, acute congestive heart exacerbation, obesity hypoventilation syndrome, atrial fibrillation uncontrolled. Intubated 01/25/2023: ICU. Drips include propofol, levo fed, Cardizem drip. Remains in atrial fibrillation. Heart rate just a little 100. Getting IV ceftriaxone. IV Decadron. Cardizem drip at 10 mg and hour. Eliquis. Ventilator 40/8 Active Medications Acetaminophen (Acetaminophen Tab 325 Mg Tab) 650 mg PO Q4H PRN PRN Reason: GENERAL DISCOMFORT Albuterol Sulfate (Albuterol Nebulized 2.5 Mg/3 Ml) 2.5 mg INHALATION RT-Q4H [facility] Last Admin: 01/25/23 11:53 Dose: 2.5 mg Alprazolam (Alprazolam 0.25 Mg Tab) 0.25 mg PO DAILY PRN PRN Reason: Anxiety Apixaban (Apixaban 5 Mg Tab) 5 mg PO BID@0800,1700 [facility]; Protocol Last Admin: 01/25/23 08:16 Dose: 5 mg Dexamethasone Sodium Phosphate (Dexamethasone Sod Phosphate 10 Mg/Ml 1 Ml Vial) 6 mg IVP BID [facility] Last Admin: 01/25/23 08:14 Dose: 6 mg Diltiazem HCl 125 mg/ Sodium (Chloride) 125 mls @ 10 mls/hr IV .[id number] [facility] Last Admin: 01/25/23 01:43 Dose: 10 mg/hr, 10 mls/hr Propofol 1,000 mg/ IV Solution 100 mls @ 13.472 mls/hr IV .Q7H26M [facility]; Protocol Last Admin: 01/25/23 09:34 Dose: 30 mcg/kg/min, 26.943 mls/hr Azithromycin 500 mg/ Sodium (Chloride) 250 mls @ 250 mls/hr IVPB DAILY [facility]; Protocol Stop: 01/26/23 09:59 Last Admin: 01/25/23 10:04 Dose: 250 mls/hr Ceftriaxone Sodium 2 gm/ (Sodium Chloride) 50 mls @ 100 mls/hr IVPB Q24HR [facility]; Protocol Last Admin: 01/25/23 08:16 Dose: 100 mls/hr Sodium Chloride (Saline 0.9%) 1,000 mls @ 100 mls/hr IV .Q10H [facility] Last Admin: 01/25/23 05:21 Dose: 100 mls/hr Norepinephrine Bitartrate 8 mg (/ Sodium Chloride) 258 mls @ 58.027 mls/hr IV .Q4H27M [facility]; Protocol Ipratropium Cameron (Ipratropium 0.5 Mg/2.5 Ml Nebu) 0.5 mg INHALATION RT-Q4H [facility] Last Admin: 01/25/23 11:54 Dose: 0.5 mg Naloxone HCl (Naloxone 0.4 Mg/Ml 1 Ml Vial) 0.2 mg IV Q2M PRN PRN Reason: Opioid Reversal Pantoprazole Sodium (Pantoprazole 40 Mg/10 Ml Vial) 40 mg IVP DAILY [facility] Last Admin: 01/25/23 08:14 Dose: 40 mg Past medical history to include: Atrophic ablation, asthma, heart failure, hypertension, osteomyelitis, obstructive sleep apnea, Social history: Currently at [facility]. No history of smoking or alcohol Physical examination: VITAL SIGNS: 98.2, 128, 18, 89/59, 88% on . GENERAL: laying in bed intubated. EYES: Pupils equal. Conjunctiva normal. HEENT: External appearance of nose and ears normal, oral cavity endotracheal tube. NECK: JVD unable to assess; masses not palpable. HEART: Heart sounds irregular no edema. LUNGS: Respiratory rate increased; diminished breath sounds. ABDOMEN: Soft, nontender, liver spleen not palpable, no masses palpable. PSYCH: Patient sedated. MUSCULOSKELETAL:No Clubbing/cyanosis;muscles-grossly intact. OA NEUROLOGICAL: [Cranial nerves grossly intact; no facial asymmetry, l responds to pain INVESTIGATIONS, reviewed in the clinical context: 01/25/2023: White count 23.8 hemoglobin 16.3 platelets 218 potassium 4.7 creatinine 0.75. ABG: PH 7.29 pCO2 54 pO2 67 White count 6.9 hemoglobin 7.5 platelets 203 ABG: PH 7.06 pCO2 more than 120 pO2 172 FiO2 100% Sodium 1:30 potassium 6 BUN 35 creatinine 0.51 Troponin I 0.048 Influenza type A, B, RSV, COVID-19: Not detected EKG tracing personally reviewed by me-atrial fibrillation, rate 127 Chest x-ray film personally reviewed by me-cardiomegaly. Prominent pulmonary artery. Questionable infiltrate Assessment and plan: -Pneumonia, suspected gram-negative organism. Consult respond IV ceftriaxone -Acute hypoxic and hypercapnic respiratory failure secondary to pneumonia, possibly obesity hypoventilation syndrome: Slow to respond Patient intubated. Ventilator assist. - acute congestive heart failure exacerbation. Diastolic versus preserved LV function precipitated by rapid ventricular rate from A. fib: Slow to respond Follow fluid status. -, Anxiety not otherwise specified Xanax when necessary -Mixed metabolic and respiratory acidosis.: Acute -Troponin leak, type II RI from hemodynamic instability. -Obesity hypoventilation syndrome -Persistent atrial fibrillation, rate uncontrolled 10 mg an hour Cardizem drip. . Cardiology following Eliquis -Morbid obesity BMI 60.4 -Septic and cardiogenic shock: Controlled IV levo fed -Chronic medical debility. bedbound -Primary osteoarthritis Pain medications when necessary -Full code Ventilated IV levo fed, propofol. IV ceftriaxone. IV Cardizem 10 mg hour. Remains critical.
--- NOTE | 2023-01-25 13:28 | OP ---
OPERATIVE REPORT DATE OF SERVICE : PROCEDURE PERFORMED: Placement of a right femoral triple-lumen catheter. PREOPERATIVE DIAGNOSES: Acute hypoxic and hypercapnic respiratory failure with hypotension. POSTOPERATIVE DIAGNOSES: Acute hypoxic and hypercapnic respiratory failure with hypotension. ANESTHESIA: 2 mL of 1% lidocaine. DESCRIPTION OF PROCEDURE: The right groin was prepared in a sterile fashion. Drapes were applied. The right femoral vein was cannulated using Doppler because I could not palpate the right femoral artery, after localized to the right femoral artery, I was able to access the right femoral vein medial to the artery, and a guidewire was placed after cannulating the femoral vein. The area around the guidewire was dilated. Then, a triple-lumen catheter was inserted over the guidewire, and the guidewire was removed. Good blood flow noted in the 3 different ports, no complications. Line was secured using 3.0 silk suture. MMODL / IJN: [id number] /
--- NOTE | 2023-01-25 13:39 | OP ---
OPERATIVE REPORT DATE OF SERVICE : PROCEDURE PERFORMED: Placement of a left radial arterial line. PREOPERATIVE DIAGNOSES: Acute hypoxic and hypercapnic respiratory failure. POSTOPERATIVE DIAGNOSES: Acute hypoxic and hypercapnic respiratory failure. ANESTHESIA USED: None deployed. DESCRIPTION OF PROCEDURE: The left wrist was prepared in a sterile fashion. Drapes were applied. The left radial artery was palpated and localized by Doppler. Then, it was cannulated easily. A guidewire was placed, a Cook's catheter was inserted over the guidewire, and the guidewire was removed. Good blood flow and good waveform. No complications. Line was secured using 3.0 silk sutures. MMODL / IJN: [id number] /
--- NOTE | 2023-01-25 13:39 | OP ---
OPERATIVE REPORT DATE OF SERVICE : PROCEDURE PERFORMED: Attempt to place a left internal jugular and left subclavian triple-lumen catheter/central line. PREOPERATIVE DIAGNOSES: Acute hypoxic and hypercapnic respiratory failure. POSTOPERATIVE DIAGNOSES: Acute hypoxic and hypercapnic respiratory failure. ANESTHESIA USED: 2 mL of 1% lidocaine. DESCRIPTION OF PROCEDURE: The patient was placed in a Trendelenburg position, the area of the left subclavian area and the left cervical region was prepared in a sterile fashion. Drapes were applied. Initially attempted to place a central line in the left IJ, I was able to access the left internal jugular vein easily using the posterior approach, I cannulated the blood vessel; however, I tried to thread the guidewire, and multiple attempts failed to thread the guidewire as I was meeting resistance. I then moved to the left subclavian area, using the inferior approach, I was able to cannulate the left subclavian vein easily. Again, attempts were made to thread to pass the guidewire through the needle into the subclavian vein, and multiple attempts have failed as I was meeting resistance, and could not advance the guidewire. Then no more attempts were made, and moved to place a line in the right femoral region. X-rays post attempts showed no evidence of any complications. MMODL / IJN: [id number] /
[2023-01-25] MEDS ORDERED: DILTIAZEM 125 MG in SODIUM CHLORIDE 0.9% 100 ML IV SCH (13:45)
[2023-01-25] MEDS: NOREPINEPHRINE 8 MG in SODIUM CHLORIDE 0.9% 250 ML IV SCH ×3 (14:30→22:49)
[2023-01-25] MEDS ORDERED: DILTIAZEM DRIP BOLUS FROM BAG 1 MG SOLN IV ONE (15:41)
[2023-01-25] MEDS ORDERED: SODIUM CHLORIDE 0.9% 500 ML 500 ML IV ONE (16:15)
[2023-01-25 16:43] LABS: Anisocytosis Slight; Basophils % (A) 0 %; Eosinophils # (A) 0.1 k/uL (0-0.7); Eosinophils % (A) 0 %; HCT 48.2 % (34.0-46.0); HGB 15.6 gm/dL (11.4-16.0); Lymphocytes # (A) 0.3 k/uL (1.0-4.8); Lymphocytes % (A) 2 %; MCH 29.3 pg (25.0-35.0); MCHC 32.3 g/dL (31.0-37.0); MCV 90.9 fL (80.0-100.0); Mean Platelet Volume 7.8; Monocytes # (A) 1.4 k/uL (0-1.0); Monocytes % (A) 7 %; Neutrophils # (A) 18.1 k/uL (1.3-7.7); Neutrophils % (A) 91 %; Platelet Count 256 k/uL (150-450); RBC 5.31 m/uL (3.80-5.40); RDW 16.4 % (11.5-15.5); WBC 19.9 k/uL (3.8-10.6)
[2023-01-25] MEDS ORDERED: DEXTROSE 5% IN WATER 100 ML with AMIODARONE 150 MG IV ONE (17:09)
[2023-01-25] MEDS ORDERED: HYDROCORTISONE SUCCINATE 100 MG/2 ML VIAL IV STA (17:09)
[2023-01-25] MEDS ORDERED: DEXTROSE 50% SYRINGE 50 ML IVP PRN ×2 (17:12)
[2023-01-25 17:19] LABS: Glucose,Whole Blood 177 mg/dL (70-110)
[2023-01-25] MEDS ORDERED: AMIODARONE 360 MG in DEXTROSE 5% IN WATER 200 ML IV ONE ×2 (17:30)
[2023-01-25] MEDS ORDERED: INSULIN ASPART (NovoLOG) 100 UNIT/ML VIAL SQ SCH (18:00)
[2023-01-25] MEDS: INSULIN ASPART (NovoLOG) 100 UNIT/ML VIAL SQ SCH ×2 (18:09→23:55)
[2023-01-25 18:32] LABS: T4, Free (Free Thyroxine) 2.32 ng/dL (0.78-2.19)
[2023-01-25 18:34] LABS: Glucose,Whole Blood 189 mg/dL (70-110)
[2023-01-25] MEDS: VASOPRESSIN 20 UNIT in SODIUM CHLORIDE 0.9% 50 ML IV SCH ×2 (19:05→23:16)
[2023-01-25 19:08] LABS: ABG Base Excess -2.5 mmol/L; ABG HCO3 24 mmol/L (21-25); ABG Oxygen Saturation 91.1 % (94-97); ABG PCO2 50 mmHg (35-45); ABG PH 7.29 (7.35-7.45); ABG PO2 66 mmHg (83-108); ABG TCO2 26 mmol/L (19-24)
[2023-01-25 19:10] LABS: Allen Test Performed? no
[2023-01-25] MEDS ORDERED: VANCOMYCIN IV PER PHARMACY 1 EACH MISC MISCELLANE PRN (20:30)
[2023-01-25] MEDS ORDERED: VANCOMYCIN 2,250 MG in SODIUM CHLORIDE 0.9% 500 ML 500 ML IVPB SCH (21:00)
[2023-01-25] MEDS ORDERED: AMIODARONE 450 MG in DEXTROSE 5% IN WATER 250 ML IV SCH ×2 (23:30)
[2023-01-25 23:54] LABS: Glucose,Whole Blood 179 mg/dL (70-110)
[2023-01-26] MEDS: ALBUTEROL NEBULIZED 2.5 MG/3 ML INHALATION SCH ×4 (00:56→11:43)
[2023-01-26] MEDS: IPRATROPIUM 0.5 MG/2.5 ML NEBU INHALATION SCH ×4 (00:57→12:10)
[2023-01-26 05:29] LABS: ABG Base Excess -3.9 mmol/L; ABG HCO3 23 mmol/L (21-25); ABG Oxygen Saturation 93.3 % (94-97); ABG PCO2 48 mmHg (35-45); ABG PH 7.29 (7.35-7.45); ABG PO2 73 mmHg (83-108); ABG TCO2 24 mmol/L (19-24); Allen Test Performed? Yes
[2023-01-26] MEDS: NOREPINEPHRINE 8 MG in SODIUM CHLORIDE 0.9% 250 ML IV SCH ×2 (05:34→06:44)
[2023-01-26] MEDS: SODIUM CHLORIDE 0.9% 1,000 ML IV SCH (05:35)
[2023-01-26 05:38] LABS: Glucose,Whole Blood 180 mg/dL (70-110)
[2023-01-26] MEDS: INSULIN ASPART (NovoLOG) 100 UNIT/ML VIAL SQ SCH (05:41)
[2023-01-26] MEDS: VASOPRESSIN 20 UNIT in SODIUM CHLORIDE 0.9% 50 ML IV SCH (06:42)
[2023-01-26 06:45] LABS: Anisocytosis Slight; Basophils % (A) 0 %; Eosinophils % (A) 0 %; HCT 40.1 % (34.0-46.0); HGB 12.8 gm/dL (11.4-16.0); Hypochromasia Slight; Lymphocytes # (A) 0.5 k/uL (1.0-4.8); Lymphocytes % (A) 2 %; MCHC 31.8 g/dL (31.0-37.0); MCV 91.1 fL (80.0-100.0); Mean Platelet Volume 8.4; Monocytes # (A) 0.9 k/uL (0-1.0); Monocytes % (A) 4 %; Neutrophils # (A) 20.7 k/uL (1.3-7.7); Neutrophils % (A) 93 %; Platelet Count 240 k/uL (150-450); RDW 16.8 % (11.5-15.5); WBC 22.2 k/uL (3.8-10.6)
[2023-01-26 06:48] LABS: Calcium 6.6 mg/dL (8.4-10.2); Potassium 4.3 mmol/L (3.5-5.1)
[2023-01-26 07:09] LABS: Anisocytosis Slight; Basophils % (A) 0 %; Eosinophils # (A) 0.1 k/uL (0-0.7); Eosinophils % (A) 1 %; HCT 38.6 % (34.0-46.0); HGB 12.4 gm/dL (11.4-16.0); Lymphocytes # (A) 0.5 k/uL (1.0-4.8); Lymphocytes % (A) 2 %; MCH 29.3 pg (25.0-35.0); MCHC 32.2 g/dL (31.0-37.0); MCV 91.1 fL (80.0-100.0); Mean Platelet Volume 8.3; Monocytes # (A) 1.2 k/uL (0-1.0); Monocytes % (A) 5 %; Neutrophils % (A) 91 %; Platelet Count 261 k/uL (150-450); RBC 4.23 m/uL (3.80-5.40); RDW 16.4 % (11.5-15.5); WBC 21.9 k/uL (3.8-10.6)
--- NOTE | 2023-01-26 07:19 | XR ---
EXAMINATION TYPE: XR chest 1V portable DATE OF EXAM: 01/26/2023 CLINICAL HISTORY: Difficulty breathing progress study. TECHNIQUE: Single AP portable upright view of the chest is obtained. COMPARISON: Chest x-ray from one day earlier and older studies. FINDINGS: Stable endotracheal and orogastric tubes. Persistent cardiomegaly without suspicious new focal airspace opacity, pleural effusion, or pneumotho rax seen. Osseous structures are intact. IMPRESSION: Cardiomegaly without acute pulmonary process. No significant change from one day earlier.
[2023-01-26 08:10] VITALS: TEMP 99.1
[2023-01-26] MEDS: PANTOPRAZOLE 40 MG/10 ML VIAL IVP SCH (08:12)
[2023-01-26] MEDS: DEXAMETHASONE SOD PHOSPHATE 10 MG/ML 1 ML VIAL IVP SCH (08:12)
[2023-01-26] MEDS: APIXABAN 5 MG TAB PO SCH (08:12)
[2023-01-26] MEDS: CEFEPIME 2 GM in SODIUM CHLORIDE 0.9% 100 ML IVPB SCH (08:18)
[2023-01-26 09:34] VITALS: BMI 67.1
--- NOTE | 2023-01-26 10:34 | P.PN ---
Subjective Progress Note Date: 01/26/23 Principal diagnosis: Respiratory failure. Acute on chronic hypercapnic respiratory failure and acute hypoxic respiratory failure This is a 77-year-old female with history of morbid obesity, obesity hypoventilation syndrome, chronic atrial fibrillation, no previous smoking histo ry, nonetheless the patient is normally maintained on albuterol, suspect underlying bronchial asthma. Patient is also on BiPAP for obstructive sleep apnea syndrome and obesity hypoventilation syndrome. Has been compliant with the machine for the last few months. Patient was brought in by EMS this morning complaining of increased shortness of breath and cough, intermittent wheezing, patient was recently started on antibiotics and steroids by her primary care physician but apparently did not improve her much. Upon arrival to the ER, her O2 saturation was in the 80s patient was placed on a nonrebreather mask, her oxygenation improved, however the patient became obtunded and developed acute on chronic hypercapnic respiratory failure. Patient was intubated by the ER physician and I was asked to see her on consultation. I saw the patient down in the ER, she is intubated, sedated, on mechanical ventilation, she is on assist control rate of 20, tidal volume 400, FiO2 was on 60% and I cut it down to 35%, and PEEP was increased from 5-8. ABG which was done on 80% showed a pCO2 of 80 be O2 of 170 pH of 7.20 prior ABG showed a pO2 of 172 pCO2 above 120 pH of 7.06. Looking at her electrolytes, patient had elevated potassium of 6.0 at a baseline bicarb is 38, she has normal renal status. Based on the fact that the patient has elevated bicarb of 38, that means the patient has chronic hypercapnia with metabolic compensation for her chronic respiratory acidosis at any rate patient is now on mechanical ventilation, and the plan is to transfer the patient to the ICU shortly once a bed becomes available. Chest x-ray showed moderate cardiomegaly, prominence of the pulmonary vasculature, and possibly some component of interstitial edema. EKG showed atrial fibrillation with RVR, otherwise no acute ischemic changes BNP level is elevated at 3320 and a troponin is 0.048. Final screening including screening for COVID-19 infection is negative. Patient was reevaluated today 01/25/2023, remains in the ICU, intubated and mechanically ventilated. No major events overnight, patient is requiring norepinephrine drip she is also on Cardizem drip. Her ventilator settings are assist control rate of 18,000 volume 400 FiO2 40% and PEEP of 8. ABG showed a pO2 of 67 pCO2 54 pH of 7.29, hence I increased her FiO2 up to 45%, and I increased her rate up to 20 from 18. Patient is on propofol at 50 mg per could've per minute norepinephrine at 0.18 mcg/kg/m Cardizem 10 mg per hour, she is also on Vicodin Hb at 10 mL per hour. Patient received significant amount of fluid boluses yesterday, continued to have very poor and marginal urine output, and she received a dose of Lasix, and her urine output is now about 30-40 mL per hour. Chest x-ray continues to show interstitial prominence. No clear-cut evidence of pulmonary edema, there is mild pulmonary vascular congestion. WBC count today is 23.8 hemoglobin is 16.3. Electrolytes are normal, BUN is 41 creatinine is 0.75, troponin level is 0.270. Patient remains empirically on antibiotics in the form of Rocephin and Zithromax, she is also on eliquis for her previous history of chronic atrial fibrillation, she is on GI prophylaxis, and she is also on bronchodilators in the form of DuoNeb. Progress note dated 01/26/2023. The patient is seen today in the intensive care unit, room 253. Her son is in the room. The patient remains on the mechanical ventilator, with settings of volume assist control, rate 22, tidal volume 400, FiO2 50%, and PEEP of 8. Blood gases show pO2 73, pCO2 48, and a pH is 7.29. The patient was admitted to the hospital on January 24, with a diagnosis of respiratory failure, chronic atrial fibrillation with RVR. In addition, the patient is getting saline at 100 mL an hour, amiodarone at 0.5 mg/m, propofol at 20 mcg/kg/m, norepinephrine at 50 mcg/m, and vasopressin at 0.04 units per minute. Vital high protein at 30 mL an hour. Goal is not yet known. The patient is a DO NOT RESUSCITATE patient. White count was 21.9, with a normal hemoglobin, hematocrit, and platelet count. Sodium 132, potassium 4.3, chlorides 105, CO2 22, BUN 46, and creatinine 0.88. Chest x-ray showed evidence of cardiomegaly, without an acute pulmonary process. Objective - Vital Signs Vital signs: Vital Signs Temp 99.1 F 01/26/23 08:00 Pulse 122 H 01/26/23 08:00 Resp 22 01/26/23 08:00 BP 93/64 01/26/23 08:00 Pulse Ox 92 L 01/26/23 08:00 FiO2 50 01/26/23 08:00 Intake & Output 01/25/23 01/26/23 01/26/23 18:59 06:59 18:59 Intake Total 2677.207 2563.557 103 Output Total 355 240 15 Balance 2322.207 2323.557 88 Weight 166.6 kg 166.6 kg Intake: IV 15 36 3 .9NS Pressure Bag 15 36 3 Intake, IV Titration 2452.207 2467.557 100 Amount Cefepime 2 gm In Sodium 100 Chloride 0.9% 100 ml @ 25 mls/hr IVPB Q12HR [facility] Rx #:[id number] Dextrose 5% in Water 100 100 ml @ 618 mls/hr IV .Q10M [facility] with Amiodarone 150 mg Rx#:[id number] Diltiazem 125 mg In 23.417 Sodium Chloride 0.9% 100 ml @ Per Protocol IV .Q0M [facility] Rx#:[id number] Norepinephrine 8 mg In 258.000 596.489 Sodium Chloride 0.9% 250 ml @ 0.18 MCG/KG/MIN 58. 027 mls/hr IV .Q4H27M [facility] Rx#:[id number] Sodium Chloride 0.9% 1, 1200 1200 100 000 ml @ 100 mls/hr IV . Q10H [facility] Rx#:[id number] Sodium Chloride 0.9% 500 500 ml 500 ml @ 999 mls/hr IV .Q31M [facility] Rx#:[id number] Vancomycin 2,250 mg In 500 Sodium Chloride 0.9% 500 ml 500 ml @ 167 mls/hr IVPB Q24H [facility] Rx#: [id number] Vasopressin 20 unit In 53.320 Sodium Chloride 0.9% 50 ml @ 0.03 UNITS/MIN 4.59 mls/hr IV .Q11H7M [facility] Rx# :[id number] propofoL 1,000 mg In 370.790 17.748 Empty Bag 1 bag @ 15 MCG/ KG/MIN 13.472 mls/hr IV . Q7H26M [facility] Rx#:[id number] Tube Feeding 180 60 Other 30 Output: Urine 355 240 15 Other: Voiding Method Indwelling Catheter Indwelling Catheter ABP, PAP, CO, CI - Last Documented Arterial Blood Pressure 72/50 - Exam No acute distress, sedated, with an orally placed endotracheal tube, and a transnasal NG tube. HEENT examination is grossly unremarkable. Neck supple. Full range of motion. No adenopathy thyromegaly or neck vein distention. Cardiovascular examination reveals an irregular rhythm and rate. S1-S2 normal. No S3 or S4. No discernible murmur noted. Heart sounds are distant. Lungs reveal scattered bilateral rhonchi. No wheezes or crackles. Breath sounds equal. Saturations are in the low 90s. Abdomen obese, without bowel sounds. No tenderness. Extremities are intact. No cyanosis or clubbing. Trace edema is noted. Skin is without rash or lesion. Neurologic examination cannot be assessed at this time. - Labs CBC & Chem 7: 01/26/23 06:55 01/26/23 05:18 Labs: Abnormal Lab Results - Last 24 Hours (Table) 01/25/23 01/25/23 01/25/23 Range/Units 06:06 11:45 11:50 WBC (3.8-10.6) k/uL Hct (34.0-46.0) % RDW (11.5-15.5) % Neutrophils # (1.3-7.7) k/uL Lymphocytes # (1.0-4.8) k/uL Monocytes # (0-1.0) k/uL ABG pH 7.29 L (7.35-7.45) ABG pCO2 54 H (35-45) mmHg ABG pO2 67 L (83-108) mmHg ABG HCO3 26 H (21-25) mmol/L ABG Total CO2 28 H (19-24) mmol/L ABG O2 Saturation 91.3 L (94-97) % Sodium (137-145) mmol/L BUN (7-17) mg/dL Glucose (74-99) mg/dL POC Glucose (mg/dL) 156 H (70-110) mg/dL Calcium (8.4-10.2) mg/dL Troponin I 0.270 H* (0.000-0.034) ng/mL TSH (0.465-4.680) mIU/L Free T4 (0.78-2.19) ng/dL 01/25/23 01/25/23 01/25/23 Range/Units 15:40 16:18 17:14 WBC 19.9 H (3.8-10.6) k/uL Hct 48.2 H (34.0-46.0) % RDW 16.4 H (11.5-15.5) % Neutrophils # 18.1 H (1.3-7.7) k/uL Lymphocytes # 0.3 L (1.0-4.8) k/uL Monocytes # 1.4 H (0-1.0) k/uL ABG pH (7.35-7.45) ABG pCO2 (35-45) mmHg ABG pO2 (83-108) mmHg ABG HCO3 (21-25) mmol/L ABG Total CO2 (19-24) mmol/L ABG O2 Saturation (94-97) % Sodium (137-145) mmol/L BUN (7-17) mg/dL Glucose (74-99) mg/dL POC Glucose (mg/dL) (70-110) mg/dL Calcium (8.4-10.2) mg/dL Troponin I 0.218 H* (0.000-0.034) ng/mL TSH 0.196 L (0.465-4.680) mIU/L Free T4 2.32 H (0.78-2.19) ng/dL 01/25/23 01/25/23 01/25/23 Range/Units 17:17 18:33 19:06 WBC (3.8-10.6) k/uL Hct (34.0-46.0) % RDW (11.5-15.5) % Neutrophils # (1.3-7.7) k/uL Lymphocytes # (1.0-4.8) k/uL Monocytes # (0-1.0) k/uL ABG pH 7.29 L (7.35-7.45) ABG pCO2 50 H (35-45) mmHg ABG pO2 66 L (83-108) mmHg ABG HCO3 (21-25) mmol/L ABG Total CO2 26 H (19-24) mmol/L ABG O2 Saturation 91.1 L (94-97) % Sodium (137-145) mmol/L BUN (7-17) mg/dL Glucose (74-99) mg/dL POC Glucose (mg/dL) 177 H 189 H (70-110) mg/dL Calcium (8.4-10.2) mg/dL Troponin I (0.000-0.034) ng/mL TSH (0.465-4.680) mIU/L Free T4 (0.78-2.19) ng/dL 01/25/23 01/26/23 01/26/23 Range/Units 23:52 05:18 05:19 WBC 22.2 H (3.8-10.6) k/uL Hct (34.0-46.0) % RDW 16.8 H (11.5-15.5) % Neutrophils # 20.7 H (1.3-7.7) k/uL Lymphocytes # 0.5 L (1.0-4.8) k/uL Monocytes # (0-1.0) k/uL ABG pH (7.35-7.45) ABG pCO2 (35-45) mmHg ABG pO2 (83-108) mmHg ABG HCO3 (21-25) mmol/L ABG Total CO2 (19-24) mmol/L ABG O2 Saturation (94-97) % Sodium 132 L (137-145) mmol/L BUN 46 H (7-17) mg/dL Glucose 190 H (74-99) mg/dL POC Glucose (mg/dL) 179 H (70-110) mg/dL Calcium 6.6 L (8.4-10.2) mg/dL Troponin I (0.000-0.034) ng/mL TSH (0.465-4.680) mIU/L Free T4 (0.78-2.19) ng/dL 01/26/23 01/26/23 01/26/23 Range/Units 05:25 05:37 06:55 WBC 21.9 H (3.8-10.6) k/uL Hct (34.0-46.0) % RDW 16.4 H (11.5-15.5) % Neutrophils # 20.0 H (1.3-7.7) k/uL Lymphocytes # 0.5 L (1.0-4.8) k/uL Monocytes # 1.2 H (0-1.0) k/uL ABG pH 7.29 L (7.35-7.45) ABG pCO2 48 H (35-45) mmHg ABG pO2 73 L (83-108) mmHg ABG HCO3 (21-25) mmol/L ABG Total CO2 (19-24) mmol/L ABG O2 Saturation 93.3 L (94-97) % Sodium (137-145) mmol/L BUN (7-17) mg/dL Glucose (74-99) mg/dL POC Glucose (mg/dL) 180 H (70-110) mg/dL Calcium (8.4-10.2) mg/dL Troponin I (0.000-0.034) ng/mL TSH (0.465-4.680) mIU/L Free T4 (0.78-2.19) ng/dL Microbiology - Last 24 Hours (Table) 01/24/23 10:23 Blood Culture - Preliminary Blood No Growth after 24 hours 01/24/23 10:38 Blood Culture - Preliminary Blood No Growth after 24 hours 01/24/23 12:05 Gram Stain - Preliminary Sputum Sputum Culture - Preliminary Assessment and Plan Assessment: Acute on chronic hypoxemic and hypercapnic respiratory failure, status post intubation on January 24. Obesity/hypoventilation syndrome. History of bronchial asthma. Acute tracheobronchitis. Chronic diastolic CHF. Probable pulmonary hypertension. Chronic atrial fibrillation. Morbid obesity. Lifetime nonsmoker. Chronic medical debility, and bedridden. Plan: Plan dated 01/26/2023. The patient's son was at the bedside. Motor long conversation about the patient's mother. She was at a local custodial, and chronically bed ridden. Mentally, she was although. The patient is a DO NOT RESUSCITATE patient. The patient would not have wanted to be on life support. The patient's son is comfortable with patient a comfort care patient. We talked about what that involved. We told him we would do nothing to hasten the patient's , but rather, try to make the dying process comfortable. He is waiting for another friend or family member to arrive at the hospital. No additional recommendations are made. Labs, x-rays, and medications are all reviewed. Time with Patient: Greater than 30
[2023-01-26] MEDS ORDERED: LORazepam 2 MG/ML INJ IV PRN (11:01)
[2023-01-26] MEDS ORDERED: MORPHINE SULFATE 2 MG/ML SYRINGE IV PRN (11:01)
[2023-01-26 13:18] VITALS: BP 48/34; PULSE 18; RESP 0
--- NOTE | 2023-01-26 16:27 | P.PN ---
Progress Note - Text Progress Note Date: 01/26/23 Chief Complaint: Short of breath This is a 77-year-old patient who follows with Dr. Garcia at [facility]. As per the EMS report and ER patient's entire being in the facilities had influenza like symptoms on and off for all week. Patient was noted to be having increasing shortness of breath since yesterday. Patient started antibiotics and steroids yesterday. Patient today was 88% on 2 L. And on 4 L and was 90% normally does 97-99% with 2 L. Patient is alert but in shortness of breath. Patient's oxygen did drop down to 86%. Patient also had a dry cough for 2-3 days. Was put on 6 L of oxygen. In the ER patient's started becoming more obtunded. Becoming more difficult use the BiPAP. Blood gas came back showing the pCO2 greater than 120. Patient was intubated. Also patient was in IV Cardizem drip because of controlled A. fib. Blood pressure dropped and Cardizem drip was discontinued. Patient is put on propofol. Patient's currently on FiO2 40 and a PEEP of 8. As per the 2 sons at the bedside. Patient does not ambulatory. Able to hold a conversation. Can feed himself.. Admitted with pneumonia, acute hypoxic hypercapnic respiratory failure, acute congestive heart exacerbation, obesity hypoventilation syndrome, atrial fibrillation uncontrolled. Intubated 01/25/2023: ICU. Drips include propofol, levo fed, Cardizem drip. Remains in atrial fibrillation. Heart rate just a little 100. Getting IV ceftriaxone. IV Decadron. Cardizem drip at 10 mg and hour. Eliquis. Ventilator 40/8 01/26/2023: ICU. Early this morning patient spoke to the patient's son. As per patient wishes of DO NOT RESUSCITATE patient was terminally extubated. Patient be put on comfort measures. I spoke at length with patient's 2 sons at the bedside. They did reflect that patient had been sick for a long time. Patient on morphine and Ativan when necessary. Active Medications Reviewed Past medical history to include: Atrophic ablation, asthma, heart failure, hypertension, osteomyelitis, obstructive sleep apnea, Social history: Currently at [facility]. No history of smoking or alcohol Physical examination: VITAL SIGNS: 99.1, 134, 22, 93 x 64, 93% oxygen support GENERAL: laying in bed extubated EYES: Pupils equal. Conjunctiva normal. HEENT: External appearance of nose and ears normal, oral cavity endotracheal tube. NECK: JVD unable to assess; masses not palpable. HEART: Heart sounds irregular no edema. LUNGS: Respiratory rate increased; diminished breath sounds. ABDOMEN: Soft, nontender, liver spleen not palpable, no masses palpable. PSYCH: Patient sedated. MUSCULOSKELETAL:No Clubbing/cyanosis;muscles-grossly intact. OA NEUROLOGICAL: [Cranial nerves grossly intact; no facial asymmetry, l responds to pain INVESTIGATIONS, reviewed in the clinical context: February 03: White count 21.9 hemoglobin 12.4 01/25/2023: White count 23.8 hemoglobin 16.3 platelets 218 potassium 4.7 creatinine 0.75. ABG: PH 7.29 pCO2 54 pO2 67 White count 6.9 hemoglobin 7.5 platelets 203 ABG: PH 7.06 pCO2 more than 120 pO2 172 FiO2 100% Sodium 1:30 potassium 6 BUN 35 creatinine 0.51 Troponin I 0.048 Influenza type A, B, RSV, COVID-19: Not detected EKG tracing personally reviewed by me-atrial fibrillation, rate 127 Chest x-ray film personally reviewed by me-cardiomegaly. Prominent pulmonary artery. Questionable infiltrate Assessment and plan: -Pneumonia, suspected gram-negative organism. Slow to respond IV ceftriaxone -Acute hypoxic and hypercapnic respiratory failure secondary to pneumonia, possibly obesity hypoventilation syndrome: Slow to respond Terminally extubated today - acute congestive heart failure exacerbation. Diastolic versus preserved LV function precipitated by rapid ventricular rate from A. fib: Slow to respond Follow fluid status. -, Anxiety not otherwise specified Xanax when necessary -Mixed metabolic and respiratory acidosis.: Acute -Troponin leak, type II [place] from hemodynamic instability. -Obesity hypoventilation syndrome -Persistent atrial fibrillation, rate uncontrolled -Morbid obesity BMI 60.4 -Septic and cardiogenic shock: Controlled -Chronic medical debility. bedbound -Primary osteoarthritis Pain medications when necessary -DO NOT RESUSCITATE Patient will still be extubated. Care was D escalated.. Being made comfort care. Spoke to both the sons at the bedside. Do not want hospice support for the family. Questions answered
--- NOTE | 2023-01-26 16:28 | P.DS ---
Providers Date of admission: 01/24/23 13:44 Expected date of discharge: 01/26/23 Attending physician: Nahun Mata Consults: 01/24/23 13:39 Consult Physician Stat Consulting Provider: Sharita Marquez Consult Reason/Comments: Critical care management Do you want consulting provider notified?: Yes 01/24/23 14:08 Consult Physician Routine Consulting Provider: Gilbert Newman Consult Reason/Comments: A. fib RVR, congestive heart failure Do you want consulting provider notified?: Yes [facility] Course: Chief Complaint: Short of breath This is a 77-year-old patient who follows with Dr. Garcia at [facility]. As per the EMS report and ER patient's entire being in the facilities had influenza like symptoms on and off for all week. Patient was noted to be having increasing shortness of breath since yesterday. Patient started antibiotics and steroids yesterday. Patient today was 88% on 2 L. And on 4 L and was 90% normally does 97-99% with 2 L. Patient is alert but in shortness of breath. Patient's oxygen did drop down to 86%. Patient also had a dry cough for 2-3 days. Was put on 6 L of oxygen. In the ER patient's started becoming more obtunded. Becoming more difficult use the BiPAP. Blood gas came back showing the pCO2 greater than 120. Patient was intubated. Also patient was in IV Cardizem drip because of controlled A. fib. Blood pressure dropped and Cardizem drip was discontinued. Patient is put on propofol. Patient's currently on FiO2 40 and a PEEP of 8. As per the 2 sons at the bedside. Patient does not ambulatory. Able to hold a conversation. Can feed himself.. Admitted with pneumonia, acute hypoxic hypercapnic respiratory failure, acute congestive heart exacerbation, obesity hypoventilation syndrome, atrial fibrillation uncontrolled. Intubated 01/25/2023: ICU. Drips include propofol, levo fed, Cardizem drip. Remains in atrial fibrillation. Heart rate just a little 100. Getting IV ceftriaxone. IV Decadron. Cardizem drip at 10 mg and hour. Eliquis. Ventilator 40/8 01/26/2023: ICU. Early this morning patient spoke to the patient's son. As per patient wishes of DO NOT RESUSCITATE patient was terminally extubated. Patient be put on comfort measures. I spoke at length with patient's 2 sons at the bedside. They did reflect that patient had been sick for a long time. Patient on morphine and Ativan when necessary. Later patient Past medical history to include: Atrophic ablation, asthma, heart failure, hypertension, osteomyelitis, obstructive sleep apnea, Social history: Currently at [facility]. No history of smoking or alcohol INVESTIGATIONS, reviewed in the clinical context: February 03: White count 21.9 hemoglobin 12.4 01/25/2023: White count 23.8 hemoglobin 16.3 platelets 218 potassium 4.7 creatinine 0.75. ABG: PH 7.29 pCO2 54 pO2 67 White count 6.9 hemoglobin 7.5 platelets 203 ABG: PH 7.06 pCO2 more than 120 pO2 172 FiO2 100% Sodium 1:30 potassium 6 BUN 35 creatinine 0.51 Troponin I 0.048 Influenza type A, B, RSV, COVID-19: Not detected EKG tracing personally reviewed by me-atrial fibrillation, rate 127 Chest x-ray film personally reviewed by me-cardiomegaly. Prominent pulmonary artery. Questionable infiltrate Cause of : Pneumonia Assessment and plan: -Pneumonia, suspected gram-negative organism. Slow to respond IV ceftriaxone -Acute hypoxic and hypercapnic respiratory failure secondary to pneumonia, possibly obesity hypoventilation syndrome: Slow to respond Terminally extubated today - acute congestive heart failure exacerbation. Diastolic versus preserved LV function precipitated by rapid ventricular rate from A. fib: Slow to respond Follow fluid status. -, Anxiety not otherwise specified Xanax when necessary -Mixed metabolic and respiratory acidosis.: Acute -Troponin leak, type II [place] from hemodynamic instability. -Obesity hypoventilation syndrome -Persistent atrial fibrillation, rate uncontrolled -Morbid obesity BMI 60.4 -Septic and cardiogenic shock: Controlled -Chronic medical debility. bedbound -Primary osteoarthritis Pain medications when necessary -DO NOT RESUSCITATE Disposition: Patient Plan - Discharge Summary New Discharge Prescriptions: No Action Sodium Chloride [Saline Mist] 1 spray EA NOSTRIL BID PRN PRN Reason: NASAL DRYNESS Na Phos,M-B/Na Phos,Di-Ba [Fleet Adult] 133 ml RECTAL DAILY PRN PRN Reason: Constipation Magnesium Hydroxide [Milk of Magnesia Concentrate] 7,200 mg PO DAILY PRN PRN Reason: Constipation bisacodyL [Dulcolax] 10 mg RECTAL DAILY PRN PRN Reason: Constipation Albuterol Nebulized [Ventolin Nebulized] 2.5 mg INHALATION RT-QID Acetaminophen [Acetaminophen 8 hr] 650 mg PO Q4H PRN PRN Reason: GENERAL DISCOMFORT dilTIAZem HCL 30 mg PO TID@0800,1400,2200 polyethylene glycoL 3350 [Miralax] 17 gm PO DAILY@0800 Potassium Chloride ER [K-Dur 10] 10 meq PO BID@0800,1700 Docusate [Colace] 100 mg PO BID@0800,2100 Apixaban [Eliquis] 5 mg PO BID@0800,1700 Spironolactone [Aldactone] 25 mg PO BID@0800,1700 Multivitamins, Thera [Multivitamin (formulary)] 1 tab PO DAILY@1700 L.acidoph,Paracasei, B.lactis [Probiotic] 1 cap PO DAILY@0800 Fluticasone Nasal [place] [Flonase Nasal [place]coot] 1 spray EA NOSTRIL DAILY Cholecalciferol [Vitamin D3 (25 Mcg = 1000 Iu)] 100 mcg PO DAILY@1700 Azithromycin [Zithromax] 500 mg PO DAILY traMADol HCl [Ultram] 50 mg PO HS PRN PRN Reason: Pain ALPRAZolam [Xanax] 0.25 mg PO DAILY PRN PRN Reason: Anxiety Albuterol Nebulized [Ventolin Nebulized] 2.5 mg INHALATION RT-Q4H PRN PRN Reason: Shortness Of Breath Benzonatate [Tessalon Perle] 200 mg PO TID@0800,1200,1700 ALPRAZolam [Xanax] 0.25 mg PO HS@2100 methylPREDNISolone [Medrol Dose Pack] See Taper PO DIRECTED Furosemide [Lasix] 40 mg PO DAILY@0800 Discharge Medication List ALPRAZolam [Xanax] 0.25 mg PO DAILY PRN 01/24/23 [History] ALPRAZolam [Xanax] 0.25 mg PO HS@2100 01/24/23 [History] Acetaminophen [Acetaminophen 8 hr] 650 mg PO Q4H PRN 01/24/23 [History] Albuterol Nebulized [Ventolin Nebulized] 2.5 mg INHALATION RT-Q4H PRN 01/24/23 [History] Albuterol Nebulized [Ventolin Nebulized] 2.5 mg INHALATION RT-QID 01/24/23 [History] Apixaban [Eliquis] 5 mg PO BID@0800,1700 01/24/23 [History] Azithromycin [Zithromax] 500 mg PO DAILY 01/24/23 [History] Benzonatate [Tessalon Perle] 200 mg PO TID@0800,1200,1700 01/24/23 [History] Cholecalciferol [Vitamin D3 (25 Mcg = 1000 Iu)] 100 mcg PO DAILY@17001/24/23 [History] Docusate [Colace] 100 mg PO BID@0800,2100 01/24/23 [History] Fluticasone Nasal [place] [Flonase Nasal [place]ilc[place]] 1 spray EA NOSTRIL DAILY 01/24/23 [History] Furosemide [Lasix] 40 mg PO DAILY@0800 01/24/23 [History] L.acidoph,Paracasei, B.lactis [Probiotic] 1 cap PO DAILY@0800 01/24/23 [History] Magnesium Hydroxide [Milk of Magnesia Concentrate] 7,200 mg PO DAILY PRN 01/24/23 [History] Multivitamins, Thera [Multivitamin (formulary)] 1 tab PO DAILY@169901/24/23 [History] Na Phos,M-B/Na Phos,Di-Ba [Fleet Adult] 133 ml RECTAL DAILY PRN 01/24/23 [History] Potassium Chloride ER [K-Dur 10] 10 meq PO BID@0800,1700 01/24/23 [History] Sodium Chloride [Saline Mist] 1 spray EA NOSTRIL BID PRN 01/24/23 [History] Spironolactone [Aldactone] 25 mg PO BID@0800,1700 01/24/23 [History] bisacodyL [Dulcolax] 10 mg RECTAL DAILY PRN 01/24/23 [History] dilTIAZem HCL 30 mg PO TID@0800,1400,2200 01/24/23 [History] methylPREDNISolone [Medrol Dose Pack] See Taper PO DIRECTED 01/24/23 [History] polyethylene glycoL 3350 [Miralax] 17 gm PO DAILY@0800 01/24/23 [History] traMADol HCl [Ultram] 50 mg PO HS PRN 01/24/23 [History] Follow up Appointment(s)/Referral(s): Benitez Garcia DO [Primary Care Provider] - 1-2 days Discharge Disposition: - Preliminary Cause of Preliminary Cause of : Pneumonia
== END 2023-01-26 16:06 | disposition expired | DRG 871 ==
LOC: EC 10:06 → 2SICU 13:44
PROVIDERS: ADMIT Hospitalist; ATTEND Hospitalist
PROC: 0BH17EZ Insertion of Endotracheal Airway into Trachea, Via Natural or Artificial Opening (ICD-10-PCS; principal; 2023-01-24)
PROC: 5A1945Z Respiratory Ventilation, 24-96 Consecutive Hours (ICD-10-PCS; principal; 2023-01-24)
PROC: 3E033XZ Introduction of Vasopressor into Peripheral Vein, Percutaneous Approach (ICD-10-PCS; 2023-01-24)
PROC: 0D9670Z Drainage of Stomach with Drainage Device, Via Natural or Artificial Opening (ICD-10-PCS; 2023-01-24)
PROC: 3E0G76Z Introduction of Nutritional Substance into Upper GI, Via Natural or Artificial Opening (ICD-10-PCS; 2023-01-24)
PROC: 05JY3ZZ Inspection of Upper Vein, Percutaneous Approach (ICD-10-PCS; 2023-01-25)
PROC: 06HY33Z Insertion of Infusion Device into Lower Vein, Percutaneous Approach (ICD-10-PCS; 2023-01-25)
PROC: 4A133B1 Monitoring of Arterial Pressure, Peripheral, Percutaneous Approach (ICD-10-PCS; 2023-01-25)
PROC: 03HY32Z Insertion of Monitoring Device into Upper Artery, Percutaneous Approach (ICD-10-PCS; 2023-01-25)
PROC: 4A133J1 Monitoring of Arterial Pulse, Peripheral, Percutaneous Approach (ICD-10-PCS; 2023-01-25)
DX: A41.9 Sepsis, unspecified organism (principal); I21.A1 Myocardial infarction type 2; J96.21 Acute and chronic respiratory failure with hypoxia; R65.21 Severe sepsis with septic shock; I50.33 Acute on chronic diastolic (congestive) heart failure; J15.6 Pneumonia due to other Gram-negative bacteria; J96.22 Acute and chronic respiratory failure with hypercapnia; J44.0 Chronic obstructive pulmonary disease with (acute) lower respiratory infection; E87.4 Mixed disorder of acid-base balance; E87.1 Hypo-osmolality and hyponatremia; E66.2 Morbid (severe) obesity with alveolar hypoventilation; J45.901 Unspecified asthma with (acute) exacerbation; Z68.44 Body mass index [BMI] 60.0-69.9, adult; I48.19 Other persistent atrial fibrillation; R57.0 Cardiogenic shock; I27.20 Pulmonary hypertension, unspecified; I11.0 Hypertensive heart disease with heart failure; Z66 Do not resuscitate; Z51.5 Encounter for palliative care; Z20.822 Contact with and (suspected) exposure to COVID-19; Z28.310 Unvaccinated for COVID-19; M19.91 Primary osteoarthritis, unspecified site; J20.9 Acute bronchitis, unspecified; F41.9 Anxiety disorder, unspecified; E87.5 Hyperkalemia; M19.90 Unspecified osteoarthritis, unspecified site; E86.1 Hypovolemia; Z79.01 Long term (current) use of anticoagulants; Z79.899 Other long term (current) drug therapy; Z74.01 Bed confinement status; Z71.3 Dietary counseling and surveillance; Z88.0 Allergy status to penicillin; Z88.8 Allergy status to other drugs, medicaments and biological substances; Z91.018 Allergy to other foods; Z91.048 Other nonmedicinal substance allergy status
CPT/HCPCS: 31500; 36415; 36600; 71045; 71046; 80048; 80053; 82533; 82805; 83605; 83735; 83880; 84132; 84145; 84436; 84439; 84443; 84484; 85025; 85610; 85730; 87040; 87070; 87205; 87636; 93005; 94003; 94640; 96365; 96366; 96368; 96375; 99291